=== PATIENT | male | born 1970 ===

== ENCOUNTER 2019-04-21 08:24 | Outpatient (CLI) | payer OTHER ==
[~2019-04-21] VITALS: Ht 175.3 cm; Wt 101.0 kg
[2019-04-21 08:51] VITALS: BP 137/88
[2019-04-21] MEDS ORDERED: ATOR40TA70 PO (09:24)
[2019-04-21] MEDS ORDERED: METF-397 PO (09:24)
[2019-04-21] MEDS ORDERED: HYDR12.56 PO (09:24)
== END 2019-04-21 09:26 | disposition home or self-care (01) ==
LOC: PREOP 08:24
PROVIDERS: ATTEND Surgery
DX: Z01.812 Encounter for preprocedural laboratory examination (principal); R19.09 Other intra-abdominal and pelvic swelling, mass and lump
CPT/HCPCS: 87081

== ENCOUNTER 2019-04-28 06:55 | Day surgery (SDC) | payer OTHER ==
[2019-04-28] VITALS (13 sets, daily range): BP systolic 112–152; BP diastolic 72–104
[~2019-04-28] VITALS: Ht 175.3 cm; Wt 101.0 kg
[~2019-04-28 06:55] MED LIST: ATOR40TA70 PO; HYDR12.56 PO; METF-397 PO
[2019-04-28] MEDS ORDERED: BUP/EPI 0.25% 1:200,000 (MARCAINE) 10 ML VIAL IJ ONE (07:09)
[2019-04-28] MEDS ORDERED: WATER (STERILE) FOR INJECTION 10 ML ONE (07:43)
[2019-04-28] MEDS ORDERED: ceFAZolin INJECTION 1,000 MG ONE (07:43)
[2019-04-28] MEDS ORDERED: proPOfol 200 MG/20 ML (DIPRIVAN) VIAL IV ONE (07:45)
[2019-04-28] MEDS ORDERED: LIDOCAINE PF 2% 5 ML (XYLOCAINE) VIAL ONE (07:45)
[2019-04-28] MEDS ORDERED: SEVOFLURANE (ULTANE) 15 ML INHAL SOLN ONE ×2 (07:45→09:21)
[2019-04-28] MEDS ORDERED: ONDANSETRON 4 MG/2 ML (SDV) Z0FRAN ONE (07:45)
[2019-04-28] MEDS ORDERED: ROCURONIUM 10 MG/ML 5 ML SYRINGE IV ONE (07:45)
[2019-04-28] MEDS ORDERED: LACTATED RINGERS 1,000 ML IV PRN (08:04)
[2019-04-28] MEDS ORDERED: ceFAZolin INJECTION 1,000 MG in WATER (STERILE) FOR INJECTION 10 ML IV ONE (08:15)
[2019-04-28] MEDS ORDERED: fentaNYL INJECTION 100 MCG/2 ML AMP ONE (08:41)
[2019-04-28] MEDS ORDERED: MIDAZOLAM 2 MG/2 ML (VERSED) VIAL ONE (08:41)
--- NOTE | 2019-04-28 08:42 | Progress Note-Pre Operative ---
Pre-Operative Progress Note H&P Reviewed The H&P was reviewed, patient examined and no changes noted. Time Seen by Provider: 08:36 Date H&P Reviewed: Apr 28, 2019 Time H&P Reviewed: 08:37 Pre-Operative Diagnosis: Left flank mass, Back Mass x 2 PEREZ OLSEN DO Apr 28, 2019 08:42
[2019-04-28] MEDS ORDERED: GLYCOPYRROLATE 0.2 MG/ML (ROBINUL) 2 ML VIAL ONE (09:16)
[2019-04-28] MEDS ORDERED: NEOSTIGMINE 3 MG/3 ML VIAL ONE (09:16)
[2019-04-28] MEDS ORDERED: KETOROLAC 30 MG/ML VIAL ONE (09:52)
--- NOTE | 2019-04-28 09:52 | Progress Note-Post Operative ---
Post-Operative Progess Note Surgeon (s)/Payroll Accounting Manager (s) Surgeon PEREZ OLSEN DO Payroll Accounting Manager: Mariajose Moya Pre-Operative Diagnosis Left flank mass, Back Mass x 2 Post-Operative Diagnosis same pending path Procedure & Operative Findings Date of Procedure 04/28/19 Procedure Performed/Findings Exc L flank 3.1cm incision Exc Lower back 3.2 cm incision Exc Upper back 3.3 cm incision Anesthesia Type GET Estimated Blood Loss Estimated blood loss (mL): scant Specimens/Packing Specimens Removed L flank mass, lower back mass, upper back mass PEREZ OLSEN DO Apr 28, 2019 09:52
[2019-04-28] MEDS ORDERED: ACHD5005 PO (09:53)
--- NOTE | 2019-04-28 09:54 | Discharge Inst-Surgical ---
Discharge Inst-Surgical Depart Medication/Instructions New, Converted or Re-Newed RX: RX Given to Pt/Family Patient Instructions Follow up Appt: Make appointment for 1 week. [phone] Instructions: May shower in 24 hours, no tub bath or soaking. Use incentive spirometer at home as directed. No Smoking Skin/Wound Care: May remove bandages in am. You need to leave the Dermabond on incision it will fall off on it's own. Symptoms to Report: Appetite Changes, Extremity Discoloration, Numbness/Tingling, Swelling Increased, Bleeding Excessive, Eyesight Changes, Pain Increased, Urine Color Change, Constipation(Persistent), Fever over 101 degree F, Pain/Pressure in chest, Urinating Difficulty, Cough Up/Vomit Blood, Heart Beat Irreg/Pounding, P ain/Pressure in jaw, Cramps in feet or legs, Lightheadedness, Pain/Pressure in shoulder, Diarrhea(Persistent), Memory Changes Suddenly, Questions/Concerns, Weight gain consecutive days, Dizziness/Fainting, Nausea/Vomiting, Shortness of Breath, Weight gain over 2 pounds If questions or concerns contact your physician Or seek help at emergency department. Activity Activity as Tolerated: Yes Activity Instructions: Avoid Stress to Incision Driving Instructions: You May Drive (but can't be taking narcotics) Diet Discharge Diet: No Restrictions Diet After 24 Hours: Clear Liquid if Nauseous If Any Problems/Questions/Issu: Contact Your Physician, Go to Emergency Room Skin/Wound Care Infection Signs and Symptoms: Increased Redness, Foul Odor of Wound, Increased Drainage, Skin Itchy or Has a Rash, Increased Swelling, Temperature Above 101 F Bathing Instructions: Shower Stitches/Loly/Dermabond Dis: Dermabond Ice Pack: Ice On and Off Site (as needed for pain) PEREZ OLSEN DO Apr 28, 2019 09:54
[2019-04-28] MEDS ORDERED: HYDROmorphone 2 MG/ML VIAL (DILAUDID) IV ONE (10:00)
[2019-04-28] MEDS ORDERED: ONDANSETRON 4 MG/2 ML (SDV) Z0FRAN IVP PRN (10:00)
[2019-04-28] MEDS ORDERED: KETOROLAC 30 MG/ML VIAL IVP ONE (10:15)
[2019-04-28] MEDS ORDERED: HYDROcodone/APAP 5 MG/325 MG (LORTAB) TAB PO ONE (11:00)
--- NOTE | 2019-04-28 11:00 | NUR ---
REPORTS SURGICAL SITE PAIN RATED 2. TAKING PO FLUIDS AND CRACKERS WITHOUT PROBLEM. LORTAB 5/325 MG, ONE TAB, GIVEN PO.
--- NOTE | 2019-04-28 11:30 | NUR ---
RESTING QUIETLY, STATES PAIN BETTER, RATES 1. SKIN AFFIX REMAINS INTACT TO X3 SURGICAL SITES LEFT LATERAL BACK. REQUESTING DISMISSAL.
--- NOTE | 2019-04-28 11:48 | Anesthesia-General Post-Op ---
General Patient Condition Mental Status/LOC: Same as Preop Cardiovascular: Satisfactory Nausea/Vomiting: Absent Respiratory: Satisfactory Pain: Controlled Complications: Absent Post Op Complications Complications None Follow Up Care/Instructions Patient Instructions None needed. Anesthesia/Patient Condition Patient Condition Patient is doing well, no complaints, stable vital signs, no apparent adverse anesthesia problems. No complications reported per nursing. DEBBIE HERNANDEZ CRNA Apr 28, 2019 11:48
--- NOTE | 2019-04-28 18:02 | OPERATIVE REPORT ---
DATE OF SERVICE: 04/28/2019 PREOPERATIVE DIAGNOSES: 1. Left flank mass. 2. Lower back mass. 3. Upper back mass. POSTOPERATIVE DIAGNOSES: 1. Left flank mass. 2. Lower back mass. 3. Upper back mass. 4. Pending pathology. PROCEDURE: Excision of masses left flank 3.2 cm incision, in the lower back 3.1 cm incision, in the upper back 3.3 cm incision. SURGEON: Bhanu Melissa DO AVIATION MANAGER: Mariajose Vizcaino MS3. ANESTHESIA: General endotracheal tube. SPECIMEN: Left flank mass, left lower back mass and upper back mass. BLOOD LOSS: Scant. FLUIDS: Per anesthesia. POSTOPERATIVE CONDITION: Stable. INDICATION FOR PROCEDURE: The patient is a 48-year-old male who has multiple masses on his flank and trunk that 3 of them are larger and causing pain and he would like to get these removed. FINDINGS: The patient had 3 masses removed it looked like lipomas. They were sent to pathology. They were deep into the subcutaneous tissue down to just above the fascia covering the muscle. PROCEDURE NOTE: After informed consent was obtained, the patient was brought to the operating room, placed on the operating table in right lateral decubitus position. He was sterilely prepped and draped in normal fashion. Local lidocaine was used to infiltrate the skin above the left flank mass as well as the lower back mass and the upper back mass. I then made an incision with #15 blade over the left flank mass, carried down through the skin into subcutaneous tissue and then able to carefully pushed on the side and a large lipoma was delivered. Cut off the base with Bovie electrocautery and then passed this off the table. This measured 3.2 cm. I then closed this with 4-0 undyed Monocryl subcuticular stitches. We turned our attention to the lower back mass. Made incision 3.1 cm incision, carried down through the skin into subcutaneous tissue. This one did not deliver, it was easily had to grasp this and then dissect around it to cut this back mass out then palpated around, did not feel any other masses, passed this off the table. Again, this was down to just above the fascia. Hemostasis obtained. Closed with 4-0 undyed Monocryl, 3 interrupted subcuticular stitches then went to the upper back mass. Made another incision, this incision was slightly longer 3.3 cm, carried down through the skin into subcutaneous tissue made with a #15 blade and then created flaps superiorly and inferiorly. Able to grasp this mass and dissected out again looked like a lipoma. Cut this out completely, passed off table and then palpated around, did not feel any other masses. At this point, obtained hemostasis using Bovie electrocautery and closed the incision with 3 interrupted 4-0 undyed Monocryl subcuticular stitches. Area was cleaned and dried. Dermabond placed as well as Band-Aids. The patient then tolerated the procedure well. Sponge and needle count correct at the end of the case. Job ID: [id number] DocumentID: [id number] Dictated Date: 04/28/2019 09:39:05 Certified Driver Examiner Date: 04/28/2019 18:02:09 Dictated By: BHANU MELISSA DO
== END 2019-04-28 12:05 | disposition home or self-care (01) ==
LOC: SDC 06:55
PROVIDERS: ATTEND Surgery
DX: D17.1 Benign lipomatous neoplasm of skin and subcutaneous tissue of trunk (principal); E11.9 Type 2 diabetes mellitus without complications; E78.5 Hyperlipidemia, unspecified; I10 Essential (primary) hypertension; F41.9 Anxiety disorder, unspecified; Z83.3 Family history of diabetes mellitus; Z80.9 Family history of malignant neoplasm, unspecified; E66.9 Obesity, unspecified; Z68.32 Body mass index [BMI] 32.0-32.9, adult; Z79.899 Other long term (current) drug therapy; Z79.84 Long term (current) use of oral hypoglycemic drugs
CPT/HCPCS: 82962; 88304

== ENCOUNTER 2020-02-11 13:23 | Emergency (ER) | payer OTHER ==
[~2020-02-11] VITALS: Ht 165 cm; Wt 99.7 kg
[~2020-02-11 13:23] MED LIST changes: +ACHD5005 PO
--- NOTE | 2020-02-11 13:23 | NUR ---
Airport Maintenance Chief line called to get patient information due to language barrier.
--- NOTE | 2020-02-11 13:23 | NUR ---
Patient states he is currently on an antibiotic for ear infection. He does not know what it's called.
[2020-02-11] MEDS ORDERED: LACTATED RINGERS 1,000 ML IV SCH (13:56)
--- NOTE | 2020-02-11 13:56 | ED General ---
General Chief Complaint: Respiratory Problems Stated Complaint: SOA;VOMITING Source of Information: Patient Exam Limitations: Language Barrier History of Present Illness Date Seen by Provider: Feb 11, 2020 Time Seen by Provider: 13:48 Initial Comments 49-year-old male presents with some mild shortness of breath with some nausea vomiting. Reports he is unable keep anything down. He has loss of taste and smell. Patient has known COVID-19. Patient reports symptoms started about 5 days ago. Has subjective fever. No reports of diarrhea. Allergies and Home Medications Allergies Coded Allergies: No Known Drug Allergies (Unverified , 04/21/19) Home Medications Atorvastatin Calcium 40 Mg Tablet, 40 MG PO DAILY, (Reported) Doxycycline Hyclate 100 Mg Tablet, 100 MG PO BID Prescribed by: LUCRETIA VALADEZ on 02/11/20 1600 Hydrochlorothiazide 12.5 Mg Tablet, 12.5 MG PO DAILY, (Reported) Hydrocodone Bit/Acetaminophen 1 Tab Tab, 1 TAB PO Q6H PRN for PAIN-MODERATE Prescribed by: PEREZ OLSEN on 04/28/19 0953 Metformin HCl 500 Mg Tablet, 500 MG PO BID, (Reported) Methylprednisolone 4 Mg Tab.ds.pk, 4 MG PO UD PER DOSE PACK INSTRUCTIONS Prescribed by: LUCRETIA VALADEZ on 02/11/20 1600 Ondansetron 4 Mg Tab.rapdis, 4 MG PO Q6H PRN for NAUSEA/VOMITING Prescribed by: LUCRETIA VALADEZ on 02/11/20 1517 Patient Home Medication List Home Medication List Reviewed: Yes Review of Systems Review of Systems Constitutional: fever, malaise, weakness Respiratory: cough, short of breath Cardiovascular: No chest pain Gastrointestinal: abdominal pain; No diarrhea; nausea, vomiting Genitourinary: no symptoms reported Musculoskeletal: no symptoms reported Skin: no symptoms reported Psychiatric/Neurological: No Symptoms Reported Past [id number]-Fhvxuk Hx Past Med/Social Hx: Reviewed Nursing Past Med/Soc Hx Patient Social History 2nd Hand Smoke Exposure: No Recent Hopitalizations: No Seasonal Allergies Seasonal Allergies: Yes Past Medical History Surgeries: Yes (KNEE SURGERY) Respiratory: No Cardiac: Yes High Cholesterol, Hypertension Neurological: No Sexually Transmitted Disease: No HIV/AIDS: No Genitourinary: No Gastrointestinal: No Musculoskeletal: No Endocrine: Yes Diabetes, Non-Insulin dep HEENT: Yes (READING GLASSES) Loss of Vision: Denies Hearing Impairment: Denies Cancer: No Psychosocial: Yes (MILD) Anxiety Integumentary: No Blood Disorders: No Adverse Reaction/Blood Tranf: No (N/A) Physical Exam Vital Signs Vital Signs - First Documented 02/11/20 13:23 Temp 39.4 Pulse 99 Resp 21 B/P (MAP) 149/90 (109) Pulse Ox 96 O2 Delivery Room Air Capillary Refill : Height, Weight, BMI Height: 5'9.00" Weight: 222lbs. 9.0oz. 100.378632th; 32.9 BMI Method: General Appearance: No Apparent Distress HEENT: PERRL/EOMI Neck: Non Tender, Supple Respiratory: Chest Non Tender, Lungs Clear Cardiovascular: Tachycardia Gastrointestinal: Non Tender, Soft Extremity: Normal Capillary Refill, Normal Inspection Neurologic/Psychiatric: Alert, Oriented x3, Normal Mood/Affect, tree specialist II-XII Norm as Tested Skin: Normal Color, Warm/Dry Focused Exam Lactate Level 02/11/20 15:06: Lactic Acid Level 1.30 Lactic Acid Level Laboratory Tests Test 02/11/20 15:06 Lactic Acid Level 1.30 MMOL/L (0.50-2.00) Progress/Results/Core Measures Suspected Sepsis SIRS Temperature: Pulse: Respiratory Rate: Laboratory Tests 02/11/20 14:05: White Blood Count 8.9 Blood Pressure / Mean: 02/11/20 15:06: Lactic Acid Level 1.30 Laboratory Tests 02/11/20 14:05: Creatinine 0.99, INR Comment 1.0, Platelet Count 167, Total Bilirubin 0.7 Results/Orders Lab Results Laboratory Tests Test 02/11/20 14:05 02/11/20 14:46 02/11/20 15:06 Range/Units White Blood Count 8.9 4.3-11.0 10^3/uL Red Blood Count 5.16 4.35-5.85 10^6/uL Hemoglobin 15.3 13.3-17.7 G/DL Hematocrit 44 40-54 % Mean Corpuscular Volume 86 80-99 FL Mean Corpuscular Hemoglobin 30 25-34 PG Mean Corpuscular Hemoglobin Concent 35 32-36 G/DL Red Cell Distribution Width 12.8 10.0-14.5 % Platelet Count 167 130-400 10^3/uL Mean Platelet Volume 10.0 7.4-10.4 FL Neutrophils (%) (Auto) 70 42-75 % Lymphocytes (%) (Auto) 23 12-44 % Monocytes (%) (Auto) 7 0-12 % Eosinophils (%) (Auto) 0 0-10 % Basophils (%) (Auto) 0 0-10 % Neutrophils # (Auto) 6.2 1.8-7.8 X 10^3 Lymphocytes # (Auto) 2.0 1.0-4.0 X 10^3 Monocytes # (Auto) 0.6 0.0-1.0 X 10^3 Eosinophils # (Auto) 0.0 0.0-0.3 10^3/uL Basophils # (Auto) 0.0 0.0-0.1 10^3/uL Prothrombin Time 13.5 12.2-14.7 SEC INR Comment 1.0 0.8-1.4 Activated Partial Thromboplast Time 33 24-35 SEC Fibrinogen 605 H 221-496 MG/DL Sodium Level 132 L 135-145 MMOL/L Potassium Level 3.8 3.6-5.0 MMOL/L Chloride Level 99 98-107 MMOL/L Carbon Dioxide Level 26 21-32 MMOL/L Anion Gap 7 5-14 MMOL/L Blood Urea Nitrogen 7 7-18 MG/DL Creatinine 0.99 0.60-1.30 MG/DL Estimat Glomerular Filtration Rate > 60 BUN/Creatinine Ratio 7 Glucose Level 124 H 70-105 MG/DL Calcium Level 7.9 L 8.5-10.1 MG/DL Corrected Calcium 8.3 L 8.5-10.1 MG/DL Total Bilirubin 0.7 0.1-1.0 MG/DL Aspartate Amino Transf (AST/SGOT) 105 H 5-34 U/L Alanine Aminotransferase (ALT/SGPT) 83 H 0-55 U/L Alkaline Phosphatase 101 40-136 U/L Lactate Dehydrogenase 482 H 125-220 U/L Troponin I < 0.028 <0.028 NG/ML C-Reactive Protein High Sensitivity 8.92 H 0.00-0.50 MG/DL Total Protein 7.0 6.4-8.2 GM/DL Albumin 3.5 3.2-4.5 GM/DL Glucometer 100 70-110 MG/DL Lactic Acid Level 1.30 0.50-2.00 MMOL/L My Orders Orders - VALADEZ,LUCRETIA L DO Accucheck Stat ONCE (02/11/20 13:56) Vital Signs: Every 4 Hours (Or (02/11/20 13:56) Monitor-Rhythm Ecg Trace Only (02/11/20 13:56) Cbc With Automated Diff (02/11/20 13:56) Comprehensive Metabolic Panel (02/11/20 13:56) Ferritin (02/11/20 13:56) LDH (02/11/20 13:56) Hs C Reactive Protein (02/11/20 13:56) Troponin I (02/11/20 13:56) Lactic Acid Analyzer (02/11/20 13:56) Protime With Inr (02/11/20 13:56) Partial Thromboplastin Time (02/11/20 13:56) Fibrinogen (02/11/20 13:56) Ekg Tracing (02/11/20 13:56) Chest 1 View, Ap/Pa Only (02/11/20 13:56) Lactated Ringers (Lr 1000 Ml Iv Solution (02/11/20 13:56) Acetaminophen Tablet/Caplet (Tylenol T (02/11/20 14:00) Ondansetron Injection (Zofran Injectio (02/11/20 14:00) Medications Given in ED Current Medications Medications Dose Ordered Sig/Lauren Route Start Time Stop Time Status Last Admin Dose Admin Acetaminophen 650 mg ONCE ONCE PO 02/11/20 14:00 02/11/20 14:01 DC 02/11/20 14:25 650 MG Ondansetron HCl 4 mg ONCE ONCE IV 02/11/20 14:00 02/11/20 14:01 DC 02/11/20 14:25 4 MG Vital Signs/I&O 02/11/20 02/11/20 02/11/20 13:23 14:25 15:30 Temp 39.4 39.5 37.7 Pulse 99 86 Resp 21 20 B/P (MAP) 149/90 (109) 126/74 (91) Pulse Ox 96 96 O2 Delivery Room Air Room Air Capillary Refill : Progress Note : Time: 16:13 Progress Note Patient with known coronavirus. He does have a questionable mass versus pneumonia on chest x-ray. I called and discussed with [facility]. They will arrange for repeat x-ray following 10 days of doxycycline and clearance of the coronavirus. At that time if he still has abnormal chest x-ray they will arrange for an outpatient CT follow-up. Patient is stable and will be discharged home. ECG Initial ECG Impression Date: Feb 11, 2020 Initial ECG Impression Time: 14:42 Initial ECG Rhythm: Normal Sinus Initial ECG Intervals: MT Diagnostic Imaging Diagonstic Imaging: Xray Plain Films/CT/US/NM/MRI: chest Comments bilateral lower lobe pneumonia Departure Impression Primary Impression: Coronavirus infection Additional Impressions: Pneumonia due to human coronavirus Abnormal chest x-ray Disposition: HOME, SELF-CARE Condition: Stable Departure-Patient Inst. Referrals: NO,LOCAL PHYSICIAN (PCP) Primary Care Physician Patient Instructions: Coronavirus Disease 2019 (COVID-19) Overview, Coronavirus Disease 2019 (COVID-19) (DC), Atypical Pneumonia (Mycoplasma and Viral) (DC) Add. Discharge Instructions: You have an abnormal chest x-ray with pneumonia versus another abnormality such as a mass. Please take the antibiotics as prescribed. Follow-up with [facility] in approximately 10 days. They will repeat an x-ray and if warranted and the pneumonia has not resolved, you will need a CT scan on an outpatient basis. Return to the ER as needed. All discharge instructions reviewed with patient and/or family. Voiced understanding. Scripts Methylprednisolone (Methylprednisolone Dose Pack) 4 Mg Tab.ds.pk 4 MG PO UD for 6 Days, #21 PKG PER DOSE PACK INSTRUCTIONS Prov: LUCRETIA VALADEZ DO 02/11/20 Doxycycline Hyclate (Doxycycline Hyclate) 100 Mg Tablet 100 MG PO BID, #20 TAB 0 Refills Prov: LUCRETIA VALADEZ DO 02/11/20 Ondansetron (Ondansetron Odt) 4 Mg Tab.rapdis 4 MG PO Q6H PRN for NAUSEA/VOMITING, #20 TAB 0 Refills Prov: LUCRETIA VALADEZ DO 02/11/20 LUCRETIA VALADEZ DO Feb 11, 2020 13:55
[2020-02-11] MEDS ORDERED: ONDANSETRON 4 MG/2 ML (SDV) Z0FRAN IV ONE (14:00)
[2020-02-11] MEDS ORDERED: ACETAMINOPHEN 325 MG TABLET PO ONE (14:00)
--- OUTSIDE RECORDS SUMMARY | 2020-02-11 14:27 | XMS REPORT | Continuity of Care Document ---
Author Organization Unknown Address Unknown Phone Unavailable Allergies Active Description Code Type Severity Reaction Onset Reported/Identified Relationship to Patient Clinical Status Yes No Known Drug Allergies [id number] Drug Allergy Unknown N/A 04/21/2019 Medications There is no data. Problems Date Dx Coded Attending Type Code Diagnosis Diagnosed By 04/21/2019 PEREZ OLSEN DO B Ot R19.0 9 OTHER INTRA-ABDOMINAL AND PELVIC SWELLIN 04/21/2019 PEREZ OLSEN DO B Ot Z01.8 12 ENCOUNTER FOR PREPROCEDURAL LABORATORY E 04/23/2019 PEREZ OLSEN DO Ot R19.0 9 OTHER INTRA-ABDOMINAL AND PELVIC SWELLIN 04/23/2019 PEREZ OLSEN DO B Ot Z01.8 12 ENCOUNTER FOR PREPROCEDURAL LABORATORY E 04/28/2019 PEREZ OLSEN DO B Ot D17.1 BENIGN LIPOMATOUS NEOPLASM OF SKIN, SUBC 04/28/2019 PEREZ OLSEN DO B Ot E11.9 TYPE 2 DIABETES MELLITUS WITHOUT COMPLIC 04/28/2019 PEREZ OLSEN DO B Ot E66.9 OBESITY, UNSPECIFIED 04/28/2019 SHAISTA OLSEN DOIC B Ot E78.5 HYPERLIPIDEMIA, UNSPECIFIED 04/28/2019 PEREZ OLSEN DO B Ot F41.9 ANXIETY DISORDER, UNSPECIFIED 04/28/2019 SHAISTA OLSEN DOIC B Ot I10 ESSENTIAL (PRIMARY) HYPERTENSION 04/28/2019 PEREZ OLSEN DO B Ot Z68.3 2 BODY MASS INDEX (BMI) 32.0-32.9, ADULT 04/28/2019 PEREZ OLSEN DO B Ot Z79.8 4 LONGTERM (CURRENT) USE OF ORAL HYPOGLYC 04/28/2019 PEREZ OLSEN DO B Ot 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 04/28/2019 PEREZ OLSEN DO B Ot Z80.9 FAMILY HISTORY OF MALIGNANT NEOPLASM, UN 04/28/2019 PEREZ OLSEN DO B Ot Z83.3 FAMILY HISTORY OF DIABETES MELLITUS 05/14/2019 PEREZ OLSEN DO Ot D17.1 BENIGN LIPOMATOUS NEOPLASM OF SKIN, SUBC 05/14/2019 PEREZ OLSEN DO Ot E11.9 TYPE 2 DIABETES MELLITUS WITHOUT COMPLIC 05/14/2019 PEREZ OLSEN DO Ot E66.9 OBESITY, UNSPECIFIED 05/14/2019 PEREZ OLSEN DO Ot E78.5 HYPERLIPIDEMIA, UNSPECIFIED 05/14/2019 PEREZ OLSEN DO Ot F41.9 ANXIETY DISORDER, UNSPECIFIED 05/14/2019 PEREZ OLSEN DO Ot I10 ESSENTIAL (PRIMARY) HYPERTENSION 05/14/2019 PEREZ OLSEN DO Ot Z68.3 2 BODY MASS INDEX (BMI) 32.0-32.9, ADULT 05/14/2019 PEREZ OLSEN DO Ot Z79.8 4 LONGTERM (CURRENT) USE OF ORAL HYPOGLYC 05/14/2019 PEREZ OLSEN DO Ot 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 Results Test Result Range LIPID PANEL - 03/26/19 09:32 CHOLESTEROL, TOTAL 245 mg/dL <200 HDL CHOLESTEROL 36 mg/dL >40 TRIGLYCERIDES 634 mg/dL <150 LDL-CHOLESTEROL mg/dL (calc) NRG CHOL/HDLC RATIO 6.8 (calc) <5.0 NON HDL CHOLESTEROL 209 mg/dL (calc) <13 0 CMP - 03/26/19 09:32 GLUCOSE 223 mg/dL 65-99 UREA NITROGEN (BUN) 12 mg/dL 7-25 CREATININE 0.94 mg/dL 0.60-1.35 eGFR NON-AFR. SAO TOMEAN 97 mL/min/1.73m2 > OR = 60 eGFR 112 mL/min/1.73m2 > OR = 60 BUN/CREATININE RATIO NOT APPLICABLE (calc) 6-22 SODIUM 138 mmol/L 135-146 POTASSIUM 4.0 mmol/L 3.5-5.3 CHLORIDE 103 mmol/L 98-110 CARBON DIOXIDE 26 mmol/L 20-32 CALCIUM 9.2 mg/dL 8.6-10.3 PROTEIN, TOTAL 7.0 g/dL 6.1-8.1 ALBUMIN 3.9 g/dL 3.6-5.1 GLOBULIN 3.1 g/dL (calc) 1.9-3.7 ALBUMIN/GLOBULIN RATIO 1.3 (calc) 1.0-2. 5 BILIRUBIN, TOTAL 0.7 mg/dL 0.2-1.2 ALKALINE PHOSPHATASE 127 U/L 40-115 AST 31 U/L 10-40 ALT 46 U/L 9-46 PSA - 03/26/19 09:32 PSA, TOTAL 0.5 ng/mL < OR = 4.0 TSH - 03/26/19 09:32 TSH 2.88 mIU/L 0.40-4.50 Methicillin resistant Staphylococcus aur eus (MRSA) screening culture - 04/21/19 09:30 Methicillin resistant Staphylococcus aureus (MRSA) scr eening culture NEG NRG Capillary blood glucose measurement by g lucometer (mass/volume) - 04/28/19 07:32 Capillary blood glucose measurement by glucometer (mas s/volume) 144 mg/dL 70-110 Encounters ACCT No. Visit Date/Time Discharge Status Pt. Type Provider Facility Loc./Unit Complaint [id number] 02/07/2020 10:20:00 02/07/2020 23:59: 59 [facility] Outpatient SHANTEL BAILEY [facility] IN [facility] [id number] 03/26/2019 08:40:00 Document Registration [id number] 04/28/2019 06:55:00 019 12:05:00 DIS Outpatient PEREZ OLSEN DO Via [facility] MASSES TO LEFT FLANK AN D BACK [id number] 04/21/2019 08:24:00 019 09:26:00 DIS Outpatient PEREZ OLSEN DO Via [facility] PREOP MASSES TO LEFT FLANK AN D BACK
[2020-02-11 14:32] LABS: BASOPHILS % (AUTO) 0 % (0-10); EOSINOPHILS % (AUTO) 0 % (0-10); HEMATOCRIT 44 % (40-54); HEMOGLOBIN 15.3 G/DL (13.3-17.7); LYMPHOCYTES % (AUTO) 23 % (12-44); MEAN CORPUSCULAR HEMOGLOBIN 30 PG (25-34); MEAN CORPUSCULAR HGB CONC 35 G/DL (32-36); MEAN CORPUSCULAR VOLUME 86 FL (80-99); MONOCYTES # (AUTO) 0.6 X 10^3 (0.0-1.0); MONOCYTES % (AUTO) 7 % (0-12); NEUTROPHILS # (AUTO) 6.2 X 10^3 (1.8-7.8); NEUTROPHILS % (AUTO) 70 % (42-75); PLATELET COUNT 167 10^3/uL (130-400); RED CELL DISTRIBUTION WIDTH 12.8 % (10.0-14.5); WHITE BLOOD COUNT 8.9 10^3/uL (4.3-11.0)
[2020-02-11 14:47] LABS: PROTHROMBIN TIME PATIENT 13.5 SEC (12.2-14.7)
[2020-02-11 14:49] LABS: ALANINE AMINOTRANSFERASE 83 U/L (0-55); ALBUMIN 3.5 GM/DL (3.2-4.5); ALKALINE PHOSPHATASE 101 U/L (40-136); BILIRUBIN,TOTAL 0.7 MG/DL (0.1-1.0); BUN/CREATININE RATIO 7; CALCIUM 7.9 MG/DL (8.5-10.1); CARBON DIOXIDE 26 MMOL/L (21-32); CHLORIDE 99 MMOL/L (98-107); CREATININE SERUM 0.99 MG/DL (0.60-1.30); GFR ESTIMATED > 60; GLUCOSE 124 MG/DL (70-105); POTASSIUM 3.8 MMOL/L (3.6-5.0); SODIUM 132 MMOL/L (135-145)
[2020-02-11] MEDS ORDERED: ONDA4TAB11 PO (15:17)
--- OUTSIDE RECORDS SUMMARY | 2020-02-11 15:19 | XMS REPORT | Continuity of Care Document ---
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 SPANISH 97 mL/min/1.73m2 > OR = 60 eGFR [...] Status Pt. Type Provider Facility Loc./Unit Complaint [id number] 02/07/2020 10:20:00 02/07/2020 23:59: 59 [facility] Outpatient SHANTEL BAILEY [facility] [id number] 03/26/2019 08:40:00 Document Registration [id number] 04/28/2019 06:55:00 019 12:05:00 DIS Outpatient PEREZ OLSEN DO Via [facility] MASSES TO LEFT FLANK AN D BACK [id number] 04/21/2019 08:24:00 019 09:26:00 DIS Outpatient PEREZ OLSEN DO Via [facility] PREOP MASSES TO LEFT FLANK AN D BACK
[2020-02-11 15:30] VITALS: BP 126/74
[2020-02-11] MEDS ORDERED: CEFD300C3 (15:58)
--- NOTE | 2020-02-11 15:59 | Diagnostic Imaging Report ---
INDICATION: Shortness of breath. Vomiting. FINDINGS: Lungs are well-aerated. There are multiple masses within the right lung measuring upwards of 3.5 cm. Left lung appears clear. Heart is not enlarged. No pulmonary edema. No pneumothorax or pleural effusion. IMPRESSION: Multiple round densities in the right lung. These may represent multiple round pneumonias though underlying malignancy is of definite concern. Would recommend CT scan of the chest for further evaluation. Dictated by: Dictated on workstation # [id number]
[2020-02-11] MEDS ORDERED: METH4TAB10 PO (16:00)
[2020-02-11] MEDS ORDERED: DOXY100T2 PO (16:00)
[2020-02-11 16:33] VITALS: BP 119/75
--- NOTE | 2020-02-11 16:34 | NUR ---
Translation line called to give patient discharge instructions. Discharge instructions printed in Gabonese for patient. All questions answered on Translation line. Patient ambulatory from ER without difficulty.
== END 2020-02-11 16:35 | disposition home or self-care (01) ==
LOC: ER 13:24 → EDUNIT# 13:40 → ER 13:41
DX: U07.1 COVID-19 (principal); J12.89 Other viral pneumonia; R91.8 Other nonspecific abnormal finding of lung field; I10 Essential (primary) hypertension; E78.00 Pure hypercholesterolemia, unspecified; E11.9 Type 2 diabetes mellitus without complications; Z79.84 Long term (current) use of oral hypoglycemic drugs
CPT/HCPCS: 36415; 71045; 80053; 82728; 82962; 83605; 83615; 84484; 85025; 85384; 85610; 85730; 86141; 93041

== ENCOUNTER 2020-02-16 14:40 | Inpatient (IN) | payer OTHER ==
[~2020-02-16] VITALS: Ht 164.7 cm; Wt 89.0 kg
[~2020-02-16 14:40] MED LIST changes: +CEFD300C3; +DOXY100T2 PO; +METH4TAB10 PO; +ONDA4TAB11 PO
[2020-02-16] MEDS ORDERED: ACETAMINOPHEN 500 MG TAB (TYLENOL) PO ONE (15:00)
[2020-02-16] MEDS ORDERED: NS IV 1000 ML 1,000 ML IV SCH ×2 (15:00→17:30)
--- NOTE | 2020-02-16 15:19 | Diagnostic Imaging Report ---
INDICATION: Increasing shortness of air. TIME OF EXAM: 2:49 PM. COMPARISON: 02/11/2020. FINDINGS: The heart size is normal. There are worsening airspace infiltrates throughout both lungs, suggestive of worsening pneumonia. There is a rounded component in the right mid to lower lung field which is stable. There is no effusion or pneumothorax. IMPRESSION: Worsening bilateral pulmonary infiltrates, consistent with worsening pneumonia. Dictated by: Dictated on workstation # [id number]
[2020-02-16 15:32] LABS: BASOPHILS # (AUTO) 0.1 10^3/uL (0.0-0.1); BASOPHILS % (AUTO) 0 % (0-10); EOSINOPHILS % (AUTO) 0 % (0-10); HEMATOCRIT 45 % (40-54); HEMOGLOBIN 15.7 G/DL (13.3-17.7); LYMPHOCYTES # (AUTO) 1.4 X 10^3 (1.0-4.0); LYMPHOCYTES % (AUTO) 10 % (12-44); MEAN CORPUSCULAR HEMOGLOBIN 30 PG (25-34); MEAN CORPUSCULAR HGB CONC 35 G/DL (32-36); MEAN CORPUSCULAR VOLUME 86 FL (80-99); MEAN PLATELET VOLUME 9.6 FL (7.4-10.4); MONOCYTES # (AUTO) 0.7 X 10^3 (0.0-1.0); MONOCYTES % (AUTO) 5 % (0-12); NEUTROPHILS # (AUTO) 10.9 X 10^3 (1.8-7.8); NEUTROPHILS % (AUTO) 84 % (42-75); PLATELET COUNT 321 10^3/uL (130-400); RED CELL DISTRIBUTION WIDTH 12.6 % (10.0-14.5)
[2020-02-16 15:55] LABS: ALBUMIN 3.2 GM/DL (3.2-4.5); CHLORIDE 100 MMOL/L (98-107); POTASSIUM 3.9 MMOL/L (3.6-5.0); SODIUM 134 MMOL/L (135-145)
[2020-02-16 15:56] LABS: INR 1.1 (0.8-1.4); PROTHROMBIN TIME PATIENT 14.5 SEC (12.2-14.7)
[2020-02-16 15:58] LABS: GLUCOSE 182 MG/DL (70-105); TOTAL PROTEIN 7.1 GM/DL (6.4-8.2)
[2020-02-16 15:59] LABS: CARBON DIOXIDE 22 MMOL/L (21-32)
[2020-02-16 16:01] LABS: ALKALINE PHOSPHATASE 110 U/L (40-136); CREATININE SERUM 0.81 MG/DL (0.60-1.30); GFR ESTIMATED > 60
[2020-02-16 16:03] LABS: BUN/CREATININE RATIO 14
[2020-02-16 16:04] LABS: ALANINE AMINOTRANSFERASE 57 U/L (0-55)
[2020-02-16 16:11] LABS: ABG BASE EXCESS -1.2 MMOL/L (-2.5-2.5); ABG OXYGEN SATURATION 95 % (94-100); ABG PCO2 31 MMHG (35-45); ABG PH 7.47 (7.37-7.43); ABG PO2 80 MMHG (79-93); ABG TCO2 22.8 MMOL/L (21.0-31.0); ALLENS TEST POSITIVE
[2020-02-16 16:12] LABS: INSPIRED O2 5; PATIENT TEMP 37.8; VENTILATOR NO
--- NOTE | 2020-02-16 16:27 | ED Respiratory ---
General Chief Complaint: Respiratory Problems Stated Complaint: COVID +;SOA Nursing Triage Note: PT PRESENTS TO ED VIA EMS FROM HOME WITH COMPLAINTS OF SOA, COUGH, FEVER, AND WEAKNESS. PT REPORTS HE DID HAVE A POSITIVE COVID SWAB. Source: patient Exam Limitations: no limitations History of Present Illness Date Seen by Provider: Feb 16, 2020 Time Seen by Provider: 15:03 Initial Comments 49-year-old male who was brought to the emergency room from home with complaints of shortness of breath, cough, fever, weakness. He was found to be 85% on room air at home with 103 fever by EMS.. He was diagnosed with COVID on 02/04/2020. He has been on doxycycline for 7 days at the time of diagnosis. He reports that he is continuing to get worse over the past week. Associated Symptoms: fever/chills, shortness of breath Allergies and Home Medications Allergies Coded Allergies: No Known Drug Allergies (Unverified , 04/21/19) Home Medications Atorvastatin Calcium 40 Mg Tablet, 40 MG PO DAILY, (Reported) Doxycycline Hyclate 100 Mg Tablet, 100 MG PO BID Prescribed by: LUCRETIA VALADEZ on 02/11/20 1600 Hydrochlorothiazide 12.5 Mg Tablet, 12.5 MG PO DAILY, (Reported) Hydrocodone Bit/Acetaminophen 1 Tab Tab, 1 TAB PO Q6H PRN for PAIN-MODERATE Prescribed by: PEREZ OLSEN on 04/28/19 0953 Metformin HCl 500 Mg Tablet, 500 MG PO BID, (Reported) Methylprednisolone 4 Mg Tab.ds.pk, 4 MG PO UD PER DOSE PACK INSTRUCTIONS Prescribed by: LUCRETIA VALADEZ on 02/11/20 1600 Ondansetron 4 Mg Tab.rapdis, 4 MG PO Q6H PRN for NAUSEA/VOMITING Prescribed by: LUCRETIA VALADEZ on 02/11/20 1517 Patient Home Medication List Home Medication List Reviewed: Yes Review of Systems Review of Systems Constitutional: see HPI, chills, fever Respiratory: see HPI, cough, short of breath All Other Systems Reviewed Negative Unless Noted: Yes Past Mgspqmy-Oneedt-[place] Hx Past Med/Social Hx: Reviewed Nursing Past Med/Soc Hx Patient Social History Alcohol Use: Denies Use Recreational Drug Use: No Smoking Status: Never a Smoker 2nd Hand Smoke Exposure: No Recent Foreign Travel: No Contact w/Someone Who Travel: No Recent Infectious Disease Expo: No Recent Hopitalizations: No Physical Abuse: No Sexual Abuse: No Mistreated: No Fear: No Seasonal Allergies Seasonal Allergies: Yes Past Medical History Surgeries: Yes (KNEE SURGERY) Respiratory: No Cardiac: Yes High Cholesterol, Hypertension Neurological: No Sexually Transmitted Disease: No HIV/AIDS: No Genitourinary: No Gastrointestinal: No Musculoskeletal: No Endocrine: Yes Diabetes, Non-Insulin dep HEENT: Yes (READING GLASSES) Loss of Vision: Denies Hearing Impairment: Denies Cancer: No Psychosocial: Yes (MILD) Anxiety Integumentary: No Blood Disorders: No Adverse Reaction/Blood Tranf: No (N/A) Family Medical History Reviewed Nursing Family Hx Physical Exam Vital Signs - First Documented 02/16/20 14:40 Temp 37.8 Pulse 88 Resp 16 B/P (MAP) 127/64 (85) Pulse Ox 98 O2 Delivery Non Rebreather O2 Flow Rate 12.00 Capillary Refill : Less Than 3 Seconds Height: 5'9.00" Weight: 222lbs. 9.0oz. [id number]; 36.00 BMI Method: General Appearance: WD/WN, no apparent distress Respiratory: chest non-tender, no respiratory distress, no accessory muscle use, decreased breath sounds Cardiovascular: normal peripheral pulses, regular rate, rhythm, no edema, no gallop, no JVD, no murmur Gastrointestinal: normal bowel sounds, non tender, soft, no organomegaly, no pulsatile mass Extremities: normal capillary refill Neurologic/Psychiatric: alert, normal mood/affect, oriented x 3 Skin: normal color, warm/dry Focused Exam Lactate Level 02/16/20 15:00: Lactic Acid Level 3.28*H Lactic Acid Level Laboratory Tests Test 02/16/20 15:00 Lactic Acid Level 3.28 MMOL/L (0.50-2.00) *H Progress/Results/Core Measures Suspected Sepsis Recent Fever Within 48 Hours: Yes Infection Criteria Present: Documented Infection New/Unexplained Altered Menta: No Sepsis Screen: No Definite Risk SIRS Temperature: Pulse: 88 Respiratory Rate: 16 Laboratory Tests 02/16/20 15:00: White Blood Count 13.0H Blood Pressure 127 /64 Mean: 85 02/16/20 15:00: Lactic Acid Level 3.28*H Laboratory Tests 02/16/20 15:00: Creatinine 0.81, INR Comment 1.1, Platelet Count 321, Total Bilirubin 1.0 Results/Orders Lab Results Laboratory Tests Test 02/16/20 14:56 02/16/20 15:00 Range/Units Blood Gas Puncture Site RIGHT RADIAL Blood Gas Patient Temperature 37.8 Arterial Blood pH 7.47 H 7.37-7.43 Arterial Blood Partial Pressure CO2 31 L 35-45 MMHG Arterial Blood Partial Pressure O2 80 79-93 MMHG Arterial Blood HCO3 22 L 23-27 MMOL/L Arterial Blood Total CO2 22.8 21.0-31.0 MMOL/L Arterial Blood Oxygen Saturation 95 94-100 % Arterial Blood Base Excess -1.2 -2.5-2.5 MMOL/L Cabrera Test POSITIVE Blood Gas Ventilator Setting NO Blood Gas Inspired Oxygen 5 White Blood Count 13.0 H 4.3-11.0 10^3/uL Red Blood Count 5.24 4.35-5.85 10^6/uL Hemoglobin 15.7 13.3-17.7 G/DL Hematocrit 45 40-54 % Mean Corpuscular Volume 86 80-99 FL Mean Corpuscular Hemoglobin 30 25-34 PG Mean Corpuscular Hemoglobin Concent 35 32-36 G/DL Red Cell Distribution Width 12.6 10.0-14.5 % Platelet Count 321 130-400 10^3/uL Mean Platelet Volume 9.6 7.4-10.4 FL Neutrophils (%) (Auto) 84 H 42-75 % Lymphocytes (%) (Auto) 10 L 12-44 % Monocytes (%) (Auto) 5 0-12 % Eosinophils (%) (Auto) 0 0-10 % Basophils (%) (Auto) 0 0-10 % Neutrophils # (Auto) 10.9 H 1.8-7.8 X 10^3 Lymphocytes # (Auto) 1.4 1.0-4.0 X 10^3 Monocytes # (Auto) 0.7 0.0-1.0 X 10^3 Eosinophils # (Auto) 0.0 0.0-0.3 10^3/uL Basophils # (Auto) 0.1 0.0-0.1 10^3/uL Prothrombin Time 14.5 12.2-14.7 SEC INR Comment 1.1 0.8-1.4 Activated Partial Thromboplast Time 26 24-35 SEC Fibrinogen 724 H 221-496 MG/DL Sodium Level 134 L 135-145 MMOL/L Potassium Level 3.9 3.6-5.0 MMOL/L Chloride Level 100 98-107 MMOL/L Carbon Dioxide Level 22 21-32 MMOL/L Anion Gap 12 5-14 MMOL/L Blood Urea Nitrogen 11 7-18 MG/DL Creatinine 0.81 0.60-1.30 MG/DL Estimat Glomerular Filtration Rate > 60 BUN/Creatinine Ratio 14 Glucose Level 182 H 70-105 MG/DL Lactic Acid Level 3.28 *H 0.50-2.00 MMOL/L Calcium Level 8.0 L 8.5-10.1 MG/DL Corrected Calcium 8.6 8.5-10.1 MG/DL Ferritin 930.0 H 32.0-356.0 ng/mL Total Bilirubin 1.0 0.1-1.0 MG/DL Aspartate Amino Transf (AST/SGOT) 34 5-34 U/L Alanine Aminotransferase (ALT/SGPT) 57 H 0-55 U/L Alkaline Phosphatase 110 40-136 U/L Lactate Dehydrogenase 623 H 125-220 U/L Troponin I < 0.028 <0.028 NG/ML C-Reactive Protein High Sensitivity 14.84 H 0.00-0.50 MG/DL Total Protein 7.1 6.4-8.2 GM/DL Albumin 3.2 3.2-4.5 GM/DL My Orders Orders - PASHA FANG Monitor-Rhythm Ecg Trace Only (02/16/20 14:56) Pulse Oximetry Order (02/16/20 14:56) Rt Request For Service (02/16/20 14:56) Sputum Culture (02/16/20 14:56) Vital Signs: Every 4 Hours (Or (02/16/20 14:56) Cbc With Automated Diff (02/16/20 14:56) Comprehensive Metabolic Panel (02/16/20 14:56) Ferritin (02/16/20 14:56) LDH (02/16/20 14:56) Hs C Reactive Protein (02/16/20 14:56) Troponin I (02/16/20 14:56) Lactic Acid Analyzer (02/16/20 14:56) Protime With Inr (02/16/20 14:56) Partial Thromboplastin Time (02/16/20 14:56) Fibrinogen (02/16/20 14:56) Ekg Tracing (02/16/20 14:56) Chest 1 View, Ap/Pa Only (02/16/20 14:56) Arterial Blood Gas (02/16/20 14:56) Acetaminophen Tablet (Tylenol Tablet) (02/16/20 15:00) Ns Iv 1000 Ml (Sodium Chloride 0.9%) (02/16/20 15:00) Blood Culture (02/16/20 14:56) Medications Given in ED Current Medications Medications Dose Ordered Sig/Lauren Route Start Time Stop Time Status Last Admin Dose Admin Acetaminophen 1,000 mg ONCE ONCE PO 02/16/20 15:00 02/16/20 15:03 DC 02/16/20 15:10 1,000 MG Vital Signs/I&O 02/16/20 14:40 Temp 37.8 Pulse 88 Resp 16 B/P (MAP) 127/64 (85) Pulse Ox 98 O2 Delivery Non Rebreather O2 Flow Rate 12.00 Capillary Refill : Less Than 3 Seconds Blood Pressure Mean: 85 Progress Note : Time: 17:45 Progress Note The patient was initially on 15 L on rebreather on arrival to the emergency room. His oxygen saturation was 98% on arrival. He was transferred to a oxymask shortly after arrival and has maintained oxygen saturations greater than 95% on oxymaskI have seen and evaluated the patient. I've informed him of this laboratory and imaging studies. He will receive a total of 3 L of IV fluids. Discussed the case with Dr. Hancock and she agrees to accept the patient to her services. Zosyn was started on in the emergency room. Patient agrees with plan of care. Departure Communication (Admissions) Time/Spoke to Admitting Phy: 17:00 I have discussed the case with Dr. Hancock at this time. She recommends giving the patient Zosyn for antibiotic coverage. Patient agrees with plan of care plans for admission. Impression Primary Impression: Pneumonia Additional Impression: SARS-associated coronavirus infection Disposition: ADMITTED INPATIENT Condition: Stable/Unchanged Admissions Decision to Admit Reason: Admit from ER (General) Decision to Admit/Date: Feb 16, 2020 Time/Decision to Admit Time: 17:00 Departure-Patient Inst. Referrals: NO,LOCAL PHYSICIAN (PCP/Family) Primary Care Physician PASHA FANG Feb 16, 2020 16:27
[2020-02-16] MEDS ORDERED: PIPERACILLIN/TAZOBACTAM (BULK) 4.5 GM in NS (IVPB) 100 ML IV ONE (16:30)
[2020-02-16] MEDS ORDERED: PIPERACILLIN/TAZO 4.5 GM VIAL (ZOSYN) IV ONE (17:00)
[2020-02-16] MEDS ORDERED: REMDESIVIR INJ (NON-FORMULARY) 200 MG in NS (IVPB) 210 ML IV NR (17:30)
[2020-02-16] MEDS ORDERED: LACTATED RINGERS 1,000 ML IV SCH (17:45)
[2020-02-16 18:00] VITALS: BP 134/84
[2020-02-16] MEDS ORDERED: CATHETER FLUSH 10 ML SYR IV PRN (18:00)
--- OUTSIDE RECORDS SUMMARY | 2020-02-16 18:33 | XMS REPORT | Continuity of Care Document ---
Author Organization Unknown Address Unknown Phone Unavailable Allergies Active Description Code Type Severity Reaction Onset Reported/Identified Relationship to Patient Clinical Status Yes No Known Drug Allergies [id number] Drug Allergy Unknown N/A 04/21/2019 Medications There [...] PEREZ OLSEN DO B Ot Z79.8 4 LONG-TERM (CURRENT) USE OF ORAL HYPOGLYC 04/28/2019 PEREZ OLSEN DO B Ot Z79.8 99 OTHER MANAGER TRAINING (CURRENT) DRUG THERAPY 04/28/2019 PEREZ OLSEN DO B Ot Z80.9 FAMILY HISTORY OF MALIGNANT NEOPLASM, UN 04/28/2019 PEREZ OLSEN DO B Ot Z83.3 FAMILY HISTORY OF DIABETES MELLITUS 05/14/2019 SHAISTA OLSEN DOIC B Ot D17.1 BENIGN LIPOMATOUS NEOPLASM OF SKIN, SUBC 05/14/2019 SHAISTA OLSEN DOIC B Ot E11.9 TYPE 2 DIABETES MELLITUS WITHOUT COMPLIC 05/14/2019 SHAISTA OLSEN DOIC B Ot E66.9 OBESITY, UNSPECIFIED 05/14/2019 SHAISTA OLSEN DOIC B Ot E78.5 HYPERLIPIDEMIA, UNSPECIFIED 05/14/2019 SHAISTA OLSEN DOIC B Ot F41.9 ANXIETY DISORDER, UNSPECIFIED 05/14/2019 PRETTY MEDINA, PEREZ B Ot I10 ESSENTIAL (PRIMARY) HYPERTENSION 05/14/2019 SHAISTA OLSEN DOIC B Ot Z68.3 2 BODY MASS INDEX (BMI) 32.0-32.9, ADULT 05/14/2019 SHAISTA OLSEN DOIC B Ot Z79.8 4 LONG-TERM (CURRENT) USE OF ORAL HYPOGLYC 05/14/2019 PRETTY MEDINA PEREZ B Ot Z79.8 99 OTHER MANAGER TRAINING (CURRENT) DRUG THERAPY 05/14/2019 SHAISTA OLSEN DOIC B Ot Z80.9 FAMILY HISTORY OF MALIGNANT NEOPLASM, UN 05/14/2019 SHAISTA OLSEN DOIC B Ot Z83.3 FAMILY HISTORY OF DIABETES MELLITUS 02/13/2020 VALADEZ DO, LUCRETIA L Ot E11.9 TYPE 2 DIABETES MELLITUS WITHOUT COMPLIC 02/13/2020 VALADEZ DO, LUCRETIA L Ot E78.0 0 PURE HYPERCHOLESTEROLEMIA, UNSPECIFIED 02/13/2020 VALADEZ DO, LUCRETIA L Ot I10 ESSENTIAL (PRIMARY) HYPERTENSION 02/13/2020 VALADEZ DO, LUCRETIA L Ot J12.8 9 OTHER VIRAL PNEUMONIA 02/13/2020 VALADEZ DO, LUCRETIA L Ot R06.0 2 SHORTNESS OF BREATH 02/13/2020 VALADEZ DO, LUCRETIA L Ot R91.8 OTHER NONSPECIFIC ABNORMAL FINDING OF IGGY 02/13/2020 VALADEZ DO, LUCRETIA L Ot U07.1 COVID-19 02/13/2020 VALADEZ DO, LUCRETIA L Ot Z79.8 4 MANAGER TRAINING (CURRENT) USE OF ORAL HYPOGLYC Procedures There is no data. Results Test [...] 7-25 CREATININE 0.94 mg/dL 0.60-1.35 eGFR NON-AFR. TRISTANIAN 97 mL/min/1.73m2 > OR = 60 eGFR [...] by glucometer (mas s/volume) 144 mg/dL 70-110 COVID-19 ([facility]) - 02/04/20 10:00 Complete blood count (CBC) with automate d white blood cell (WBC) differential - 02/11/20 14:05 Blood leukocytes automated count (number/volume) 8.9 10*3/uL 4.3-11.0 Blood erythrocytes automated count (number/volume) 5.16 10*6/uL 4.35-5.85 Venous blood hemoglobin measurement (mass/volume) 15.3 g/dL 13.3-17.7 Blood hematocrit (volume fraction) 44 % 40-54 Automated erythrocyte mean corpuscular volume 86 [ foz_us] 80-99 Automated erythrocyte mean corpuscular h emoglobin (mass per erythrocyte) 30 pg 25-34 Automated erythrocyte mean corpuscular h emoglobin concentration measurement (mass/volume) 35 g/dL 32-36 Automated erythrocyte distribution width ratio 12. 8 % 10.0- 14.5 Automated blood platelet count (count/volume) 167 10*3/uL 130-400 Automated blood platelet mean volume measurement 10.0 [foz_us] 7.4-10.4 Automated blood neutrophils/100 leukocytes 70 % 42-75 Automated blood lymphocytes/100 leukocytes 23 % 12-44 Blood monocytes/100 leukocytes 7 % 0-12 Automated blood eosinophils/100 leukocytes 0 % 0-10 Automated blood basophils/100 leukocytes 0 % 0-10 Blood neutrophils automated count (number/volume) 6.2 10*3 1.8-7.8 Blood lymphocytes automated count (number/volume) 2.0 10*3 1.0-4.0 Blood monocytes automated count (number/volume) 0. 6 10*3 0.0-1.0 Automated eosinophil count 0.0 10*3/uL 0 .0-0.3 Automated blood basophil count (count/volume) 0.0 10*3/uL 0.0-0.1 PT panel in platelet poor plasma by coag ulation assay - 02/11/20 14:05 Prothrombin time (PT) in platelet poor plasma by coagu lation assay 13.5 s 12.2-14.7 INR in platelet poor plasma or blood by coagulation as say 1.0 0.8-1.4 Activated partial thromboplastin time (a PTT) in platelet poor plasma bycoagulation assay - 02/11/20 14:05 Activated partial thromboplastin time (a PTT) in platelet poor plasma bycoagulation assay 33 s 24-35 Fibrinogen measurement in platelet poor plasma by coagulation assay (mass/volume) - 02/11/20 14:05 Fibrinogen measurement in platelet poor plasma by coagulation assay (mass/volume) 605 mg/dL 221-496 Comprehensive metabolic panel - 02/11/20 14:05 Serum or plasma sodium measurement (moles/volume) 132 mmol/L 135-145 Serum or plasma potassium measurement (moles/volume) 3.8 mmol/L 3.6-5.0 Serum or plasma chloride measurement (moles/volume) 99 mmol/L 98-107 Carbon dioxide 26 mmol/L 21-32 Serum or plasma anion gap determination (moles/volume) 7 mmol/L 5-14 Serum or plasma urea nitrogen measurement (mass/volume ) 7 mg/dL 7-18 Serum or plasma creatinine measurement (mass/volume) 0.99 mg/dL 0.60-1.30 Serum or plasma urea nitrogen/creatinine mass ratio 7 NRG Serum or plasma creatinine measurement w ith calculation of estimated glomerular filtration rate > NRG Serum or plasma glucose measurement (mass/volume) 124 mg/dL 70-105 Serum or plasma calcium measurement (mass/volume) 7.9 mg/dL 8.5-10.1 Serum or plasma total bilirubin measurement (mass/volu me) 0.7 mg/dL 0.1-1.0 Serum or plasma alkaline phosphatase patrick surement (enzymatic activity/volume) 101 U/L 40-136 Serum or plasma aspartate aminotransfera se measurement (enzymatic activity/volume) 105 U/L 5-34 Serum or plasma alanine aminotransferase measurement (enzymatic activity/volume) 83 U/L 0-55 Serum or plasma protein measurement (mass/volume) 7.0 g/dL 6.4-8.2 Serum or plasma albumin measurement (mass/volume) 3.5 g/dL 3.2-4.5 CALCIUM CORRECTED 8.3 mg/dL 8.5-10.1 Serum ragweed IgE antibody assay - 02/10 14:05 Serum ragweed IgE antibody assay 482 U/L 125-220 Serum or plasma troponin i.cardiac measu rement (mass/volume) - 02/11/20 14:05 Serum or plasma troponin i.cardiac measurement (mass/v olume) < ng/mL <0.028 Serum or plasma C reactive protein measu rement (mass/volume) - 02/11/20 14:05 Serum or plasma C reactive protein measurement (mass/v olume) 8.92 mg/dL 0.00-0.50 Serum or plasma ferritin measurement (ma ss/volume) - 02/11/20 14:05 Serum or plasma ferritin measurement (mass/volume) 1544.3 % 32.0-356.0 Capillary blood glucose measurement by g lucometer (mass/volume) - 02/11/20 14:46 Capillary blood glucose measurement by glucometer (mas s/volume) 100 mg/dL 70-110 Blood lactic acid measurement (moles/vol ume) - 02/11/20 15:06 Blood lactic acid measurement (moles/volume) 1.30 mmol/L 0.50-2.00 Arterial blood gas measurement - 0 14:56 Blood pCO2 31 mm[Hg] 35-45 Blood pO2 80 mm[Hg] 79-93 Arterial blood bicarbonate measurement (moles/volume) 22 mmol/L 23-27 Arterial blood base excess by calculation -1.2 mmo l/L -2.5-2.5 Arterial blood oxygen saturation measurement 95 % 94-100 * Inhaled oxygen flow rate 5 NRG Arterial blood pH measurement with patient temperature correction 7.47 7.37-7.43 Arterial blood carbon dioxide, total measurement (mole s/volume) 22.8 mmol/L 21.0-31.0 Body site RIGHT RADIAL NRG Assessment of wrist artery patency prior to arterial p uncture POSITIVE NRG Setting of ventilation mode NO NR G Measurement of body temperature 37.8 NRG Complete blood count (CBC) with automate d white blood cell (WBC) differential - 02/16/20 15:00 Blood leukocytes automated count (number/volume) 13.0 10*3/uL 4.3-11.0 Blood erythrocytes automated count (number/volume) 5.24 10*6/uL 4.35-5.85 Venous blood hemoglobin measurement (mass/volume) 15.7 g/dL 13.3-17.7 Blood hematocrit (volume fraction) 45 % 40-54 Automated erythrocyte mean corpuscular volume 86 [ foz_us] 80-99 Automated erythrocyte mean corpuscular h emoglobin (mass per erythrocyte) 30 pg 25-34 Automated erythrocyte mean corpuscular h emoglobin concentration measurement (mass/volume) 35 g/dL 32-36 Automated erythrocyte distribution width ratio 12. 6 % 10.0- 14.5 Automated blood platelet count (count/volume) 321 10*3/uL 130-400 Automated blood platelet mean volume measurement 9.6 [foz_us] 7.4-10.4 Automated blood neutrophils/100 leukocytes 84 % 42-75 Automated blood lymphocytes/100 leukocytes 10 % 12-44 Blood monocytes/100 leukocytes 5 % 0-12 Automated blood eosinophils/100 leukocytes 0 % 0-10 Automated blood basophils/100 leukocytes 0 % 0-10 Blood neutrophils automated count (number/volume) 10.9 10*3 1.8-7.8 Blood lymphocytes automated count (number/volume) 1.4 10*3 1.0-4.0 Blood monocytes automated count (number/volume) 0. 7 10*3 0.0-1.0 Automated eosinophil count 0.0 10*3/uL 0 .0-0.3 Automated blood basophil count (count/volume) 0.1 10*3/uL 0.0-0.1 Blood lactic acid measurement (moles/vol ume) - 02/16/20 15:00 Blood lactic acid measurement (moles/volume) 3.28 mmol/L 0.50-2.00 Comprehensive metabolic panel - 02/16/20 15:00 Serum or plasma sodium measurement (moles/volume) 134 mmol/L 135-145 Serum or plasma potassium measurement (moles/volume) 3.9 mmol/L 3.6-5.0 Serum or plasma chloride measurement (moles/volume) 100 mmol/L 98-107 Carbon dioxide 22 mmol/L 21-32 Serum or plasma anion gap determination (moles/volume) 12 mmol/L 5-14 Serum or plasma urea nitrogen measurement (mass/volume ) 11 mg/dL 7-18 Serum or plasma creatinine measurement (mass/volume) 0.81 mg/dL 0.60-1.30 Serum or plasma urea nitrogen/creatinine mass ratio 14 NRG Serum or plasma creatinine measurement w ith calculation of estimated glomerular filtration rate > NRG Serum or plasma glucose measurement (mass/volume) 182 mg/dL 70-105 Serum or plasma calcium measurement (mass/volume) 8.0 mg/dL 8.5-10.1 Serum or plasma total bilirubin measurement (mass/volu me) 1.0 mg/dL 0.1-1.0 Serum or plasma alkaline phosphatase patrick surement (enzymatic activity/volume) 110 U/L 40-136 Serum or plasma aspartate aminotransfera se measurement (enzymatic activity/volume) 34 U/L 5-34 Serum or plasma alanine aminotransferase measurement (enzymatic activity/volume) 57 U/L 0-55 Serum or plasma protein measurement (mass/volume) 7.1 g/dL 6.4-8.2 Serum or plasma albumin measurement (mass/volume) 3.2 g/dL 3.2-4.5 CALCIUM CORRECTED 8.6 mg/dL 8.5-10.1 PT panel in platelet poor plasma by coag ulation assay - 02/16/20 15:00 Prothrombin time (PT) in platelet poor plasma by coagu lation assay 14.5 s 12.2-14.7 INR in platelet poor plasma or blood by coagulation as say 1.1 0.8-1.4 Activated partial thromboplastin time (a PTT) in platelet poor plasma bycoagulation assay - 02/16/20 15:00 Activated partial thromboplastin time (a PTT) in platelet poor plasma bycoagulation assay 26 s 24-35 Fibrinogen measurement in platelet poor plasma by coagulation assay (mass/volume) - 02/16/20 15:00 Fibrinogen measurement in platelet poor plasma by coagulation assay (mass/volume) 724 mg/dL 221-496 Serum ragweed IgE antibody assay - 02/15 15:00 Serum ragweed IgE antibody assay 623 U/L 125-220 Serum or plasma troponin i.cardiac measu rement (mass/volume) - 02/16/20 15:00 Serum or plasma troponin i.cardiac measurement (mass/v olume) < ng/mL <0.028 Serum or plasma C reactive protein measu rement (mass/volume) - 02/16/20 15:00 Serum or plasma C reactive protein measurement (mass/v olume) 14.84 mg/dL 0.00-0.50 Serum or plasma lactate measurement (mol es/volume) - 02/16/20 17:24 Serum or plasma lactate measurement (moles/volume) 2.35 mmol/L 0.50-2.00 Encounters ACCT No. Visit Date/Time Discharge Status Pt. Type Provider Facility Loc./Unit Complaint [id number] 02/07/2020 10:20:00 02/07/2020 23:59: 59 [facility] Outpatient SHANTEL BAILEY [facility] [id number] 02/04/2020 09:40:00 Document Registration [id number] 03/26/2019 08:40:00 Document Registration [id number] 02/11/2020 13:24:00 020 16:35:00 DIS Outpatient LUCRETIA VALADEZ DO [facility] ER SOA;VOMITING [id number] 04/28/2019 06:55:00 019 12:05:00 DIS Outpatient PEREZ OLSEN DO [facility] SDC MASSES TO LEFT FLANK AN D BACK [id number] 04/21/2019 08:24:00 019 09:26:00 DIS Outpatient PEREZ OLSEN DO [facility] PREOP MASSES TO LEFT FLANK AN D BACK [id number] 02/16/2020 15:39:00 Document Registration
[2020-02-16 18:44] LABS: BASOPHILS % (AUTO) 0 % (0-10); EOSINOPHILS % (AUTO) 0 % (0-10); HEMATOCRIT 39 % (40-54); HEMOGLOBIN 13.4 G/DL (13.3-17.7); LYMPHOCYTES # (AUTO) 1.3 X 10^3 (1.0-4.0); LYMPHOCYTES % (AUTO) 12 % (12-44); MEAN CORPUSCULAR HEMOGLOBIN 30 PG (25-34); MEAN CORPUSCULAR HGB CONC 34 G/DL (32-36); MEAN CORPUSCULAR VOLUME 86 FL (80-99); MEAN PLATELET VOLUME 9.3 FL (7.4-10.4); MONOCYTES # (AUTO) 0.7 X 10^3 (0.0-1.0); MONOCYTES % (AUTO) 6 % (0-12); NEUTROPHILS # (AUTO) 9.2 X 10^3 (1.8-7.8); NEUTROPHILS % (AUTO) 82 % (42-75); PLATELET COUNT 240 10^3/uL (130-400); RED CELL DISTRIBUTION WIDTH 12.6 % (10.0-14.5); WHITE BLOOD COUNT 11.2 10^3/uL (4.3-11.0)
[2020-02-16 19:00] VITALS: BP 134/81
--- NOTE | 2020-02-16 19:01 | NUR ---
this nurse et RN Reshma Kim discussed with patient risks et side effects of medication Remdesivir. Patient voiced understanding, et gave consent to receive medication.
[2020-02-16 19:09] LABS: BAND NEUTROPHILS 0 %; BASOPHILS % (MANUAL) 0 %; EOSINOPHILS % (MANUAL) 0 %; LYMPHOCYTES % (MANUAL) 12 %; METAMYELOCYTES % 2 %; MONOCYTES % (MANUAL) 4 %; NEUTROPHILS % (MANUAL) 82 %; NUCLEATED RED BLOOD CELLS 1; POLYCHROMASIA SLIGHT
[2020-02-16 19:10] LABS: ANISOCYTOSIS SLIGHT
[2020-02-16 19:13] LABS: ALBUMIN 2.6 GM/DL (3.2-4.5); CALCIUM 7.3 MG/DL (8.5-10.1); CHLORIDE 106 MMOL/L (98-107); GLUCOSE 150 MG/DL (70-105); SODIUM 135 MMOL/L (135-145)
[2020-02-16 19:14] LABS: CARBON DIOXIDE 22 MMOL/L (21-32); TOTAL PROTEIN 5.7 GM/DL (6.4-8.2)
[2020-02-16 19:20] LABS: ALANINE AMINOTRANSFERASE 45 U/L (0-55); ALKALINE PHOSPHATASE 85 U/L (40-136); BILIRUBIN,TOTAL 1.2 MG/DL (0.1-1.0); BUN/CREATININE RATIO 12; CREATININE SERUM 0.73 MG/DL (0.60-1.30); GFR ESTIMATED > 60
[2020-02-16 20:00] VITALS: BP 135/80
[2020-02-16 21:00] VITALS: BP 134/83
[2020-02-16] MEDS: NS IV 1000 ML 1,000 ML IV SCH (21:01)
--- OUTSIDE RECORDS SUMMARY | 2020-02-16 21:30 | XMS REPORT | Continuity of Care Document ---
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 [place] 97 mL/min/1.73m2 > OR = 60 eGFR [...] plasma lactate measurement (moles/volume) 2.35 mmol/L 0.50-2.00 Blood CBC with ordered manual differenti al panel - 02/16/20 18:17 Blood leukocytes automated count (number/volume) 11.2 10*3/uL 4.3-11.0 Blood erythrocytes automated count (number/volume) 4.51 10*6/uL 4.35-5.85 Venous blood hemoglobin measurement (mass/volume) 13.4 g/dL 13.3-17.7 Blood hematocrit (volume fraction) 39 % 40-54 Automated erythrocyte mean corpuscular volume 86 [ foz_us] 80-99 Automated erythrocyte mean corpuscular h emoglobin (mass per erythrocyte) 30 pg 25-34 Automated erythrocyte mean corpuscular h emoglobin concentration measurement (mass/volume) 34 g/dL 32-36 Automated erythrocyte distribution width ratio 12. 6 % 10.0- 14.5 Automated blood platelet count (count/volume) 240 10*3/uL 130-400 Automated blood platelet mean volume measurement 9.3 [foz_us] 7.4-10.4 Automated blood neutrophils/100 leukocytes 82 % 42-75 Automated blood lymphocytes/100 leukocytes 12 % 12-44 Blood monocytes/100 leukocytes 4 % NRG Automated blood eosinophils/100 leukocytes 0 % 0-10 Automated blood basophils/100 leukocytes 0 % 0-10 Blood neutrophils automated count (number/volume) 9.2 10*3 1.8-7.8 Blood lymphocytes automated count (number/volume) 1.3 10*3 1.0-4.0 Blood monocytes automated count (number/volume) 0. 7 10*3 0.0-1.0 Automated eosinophil count 0.0 10*3/uL 0 .0-0.3 Automated blood basophil count (count/volume) 0.0 10*3/uL 0.0-0.1 Manual blood segmented neutrophils/100 leukocytes 82 % NRG Blood band neutrophils/100 leukocytes 0 % NRG Manual blood lymphocytes/100 leukocytes 12 % NRG Manual eosinophils/100 leukocytes in nose 0 % NRG Manual blood basophils/100 leukocytes 0 % NRG Blood polychromasia detection by light microscopy SLIGHT NRG Blood anisocytosis detection by light microscopy S LIGHT NRG Blood macrocytes detection by light microscopy SLI GHT NRG Manual blood metamyelocytes/100 leukocytes 2 % NRG Manual blood nucleated erythrocytes/100 leukocytes ratio 1 NRG Fibrin D-dimer FEU measurement in platel et poor plasma (mass/volume) - 02/16/20 18:17 Fibrin D-dimer FEU measurement in platelet poor plasma (mass/volume) 15.25 ug/mL 0.00-0.49 Comprehensive metabolic panel - 02/16/20 18:17 Serum or plasma sodium measurement (moles/volume) 135 mmol/L 135-145 Serum or plasma potassium measurement (moles/volume) 4.0 mmol/L 3.6-5.0 Serum or plasma chloride measurement (moles/volume) 106 mmol/L 98-107 Carbon dioxide 22 mmol/L 21-32 Serum or plasma anion gap determination (moles/volume) 7 mmol/L 5-14 Serum or plasma urea nitrogen measurement (mass/volume ) 9 mg/dL 7-18 Serum or plasma creatinine measurement (mass/volume) 0.73 mg/dL 0.60-1.30 Serum or plasma urea nitrogen/creatinine mass ratio 12 NRG Serum or plasma creatinine measurement w ith calculation of estimated glomerular filtration rate > NRG Serum or plasma glucose measurement (mass/volume) 150 mg/dL 70-105 Serum or plasma calcium measurement (mass/volume) 7.3 mg/dL 8.5-10.1 Serum or plasma total bilirubin measurement (mass/volu me) 1.2 mg/dL 0.1-1.0 Serum or plasma alkaline phosphatase patrick surement (enzymatic activity/volume) 85 U/L 40-136 Serum or plasma aspartate aminotransfera se measurement (enzymatic activity/volume) 28 U/L 5-34 Serum or plasma alanine aminotransferase measurement (enzymatic activity/volume) 45 U/L 0-55 Serum or plasma protein measurement (mass/volume) 5.7 g/dL 6.4-8.2 Serum or plasma albumin measurement (mass/volume) 2.6 g/dL 3.2-4.5 CALCIUM CORRECTED 8.4 mg/dL 8.5-10.1 Capillary blood glucose measurement by g lucometer (mass/volume) - 02/16/20 20:52 Capillary blood glucose measurement by glucometer (mas s/volume) 177 mg/dL 70-110 Encounters ACCT No. Visit Date/Time Discharge Status Pt. Type Provider Facility Loc./Unit Complaint [id number] 02/07/2020 10:20:00 02/07/2020 23:59: 59 CLS Outpatient [facility] [id number] 02/04/2020 09:40:00 Document Registration [id number] 03/26/2019 08:40:00 Document Registration [id number] 02/11/2020 13:24:00 020 16:35:00 DIS Outpatient VALADEZ DO, LUCRETIA L [facility] ER SOA;VOMITING [id number] 04/28/2019 06:55:00 019 12:05:00 DIS Outpatient PEREZ OLSEN DO [facility] SDC MASSES TO LEFT FLANK AN D BACK [id number] 04/21/2019 08:24:00 019 09:26:00 DIS Outpatient PEREZ OLSEN DO [facility] PREOP MASSES TO LEFT FLANK AN D BACK [id number] 02/16/2020 14:41:[address] Emergency PASHA FANG [facility] ER COVID +;SOA
[2020-02-16 21:39] VITALS: BP 127/64
[2020-02-16] MEDS ORDERED: HYDROCORTISONE 100 MG/2 ML (Solu-CORTEF) VIAL IV SCH (22:00)
[2020-02-16 23:00] VITALS: BP 140/92
[2020-02-16] MEDS: PIPERACILLIN/TAZO 4.5 GM/NS 100 ML IV SCH ×2 (23:08)
[2020-02-17] VITALS (23 sets, daily range): BP systolic 104–163; BP diastolic 60–107
[2020-02-17 03:51] LABS: CHLORIDE 106 MMOL/L (98-107); POTASSIUM 4.2 MMOL/L (3.6-5.0); SODIUM 135 MMOL/L (135-145)
[2020-02-17 03:52] LABS: CALCIUM 7.8 MG/DL (8.5-10.1)
[2020-02-17 03:53] LABS: GLUCOSE 258 MG/DL (70-105)
[2020-02-17 03:55] LABS: CARBON DIOXIDE 19 MMOL/L (21-32)
[2020-02-17 03:57] LABS: CREATININE SERUM 0.76 MG/DL (0.60-1.30); GFR ESTIMATED > 60; PHOSPHORUS 3.4 MG/DL (2.3-4.7)
[2020-02-17 03:58] LABS: BUN/CREATININE RATIO 14
[2020-02-17 04:00] LABS: BASOPHILS % (AUTO) 0 % (0-10); EOSINOPHILS % (AUTO) 0 % (0-10); HEMATOCRIT 40 % (40-54); HEMOGLOBIN 13.8 G/DL (13.3-17.7); LYMPHOCYTES % (AUTO) 10 % (12-44); MAGNESIUM 2.1 MG/DL (1.6-2.4); MEAN CORPUSCULAR HEMOGLOBIN 30 PG (25-34); MEAN CORPUSCULAR HGB CONC 34 G/DL (32-36); MEAN CORPUSCULAR VOLUME 88 FL (80-99); MEAN PLATELET VOLUME 9.5 FL (7.4-10.4); MONOCYTES # (AUTO) 0.6 X 10^3 (0.0-1.0); MONOCYTES % (AUTO) 6 % (0-12); NEUTROPHILS # (AUTO) 8.2 X 10^3 (1.8-7.8); NEUTROPHILS % (AUTO) 83 % (42-75); PLATELET COUNT 227 10^3/uL (130-400); RED CELL DISTRIBUTION WIDTH 12.9 % (10.0-14.5); WHITE BLOOD COUNT 9.8 10^3/uL (4.3-11.0)
[2020-02-17 04:21] LABS: BAND NEUTROPHILS 0 %; EOSINOPHILS % (MANUAL) 2 %; LYMPHOCYTES % (MANUAL) 12 %; MONOCYTES % (MANUAL) 7 %; NEUTROPHILS % (MANUAL) 79 %
[2020-02-17] MEDS: POTASSIUM CL 10MEQ/50ML IVPB 50 ML IV SCH (05:30)
[2020-02-17] MEDS: KCL 20 MEQ TAB (K-DUR) PO SCH (05:31)
[2020-02-17] MEDS: MAGNESIUM 1 GM/100 ML IVPB 100 ML IV SCH (05:31)
--- NOTE | 2020-02-17 06:20 | Pulmonary Consultation ---
History of Present Illness History of Present Illness Date Seen by Provider: Feb 17, 2020 Time Seen by Provider: 06:15 Date of Admission History of Present Illness 49yo presented to ED secondary to worsening shortness of breath, cough, fever, weakness. He was found to be 85% on room air at home with 103 fever by EMS.. He was diagnosed with COVID on 02/04/2020. He has been on doxycycline for 7 days at the time of diagnosis. He reports that he is continuing to get worse over the past week. Pt was admitted to ICU for close observation. Allergies and Home Medications Allergies Coded Allergies: No Known Drug Allergies (Unverified , 04/21/19) Home Medications Atorvastatin Calcium 40 Mg Tablet, 40 MG PO DAILY, (Reported) Doxycycline Hyclate 100 Mg Tablet, 100 MG PO BID Prescribed by: LUCRETIA VALADEZ on 02/11/20 1600 Hydrochlorothiazide 12.5 Mg Tablet, 12.5 MG PO DAILY, (Reported) Hydrocodone Bit/Acetaminophen 1 Tab Tab, 1 TAB PO Q6H PRN for PAIN-MODERATE Prescribed by: PEREZ OLSEN on 04/28/19 0953 Metformin HCl 500 Mg Tablet, 500 MG PO BID, (Reported) Methylprednisolone 4 Mg Tab.ds.pk, 4 MG PO UD PER DOSE PACK INSTRUCTIONS Prescribed by: LUCRETIA VALADEZ on 02/11/20 1600 Ondansetron 4 Mg Tab.rapdis, 4 MG PO Q6H PRN for NAUSEA/VOMITING Prescribed by: LUCRETIA VALADEZ on 02/11/20 1517 Past Sjodofz-Ruexbd-Bwqxxc Hx Past Med/Social Hx: Reviewed Nursing Past Med/Soc Hx Patient Social History Alcohol Use: Denies Use Recreational Drug Use: No Smoking Status: Never a Smoker 2nd Hand Smoke Exposure: No Recent Foreign Travel: No Contact w/Someone Who Travel: No Recent Infectious Disease Expo: No Recent Hopitalizations: No Physical Abuse: No Sexual Abuse: No Mistreated: No Fear: No Seasonal Allergies Seasonal Allergies: Yes Past Medical History Surgeries: Yes (KNEE SURGERY) Respiratory: No Cardiac: Yes High Cholesterol, Hypertension Neurological: No Sexually Transmitted Disease: No HIV/AIDS: No Genitourinary: No Gastrointestinal: No Musculoskeletal: No Endocrine: Yes Diabetes, Non-Insulin dep HEENT: Yes (READING GLASSES) Loss of Vision: Denies Hearing Impairment: Denies Cancer: No Psychosocial: Yes (MILD) Anxiety Integumentary: No Blood Disorders: No Adverse Reaction/Blood Tranf: No (N/A) Family Medical History Reviewed Nursing Family Hx Review of Systems Time Seen by Provider: 06:24 Constitutional: Fever, Chills, Sweats, Weakness, Malaise, Other Eyes: No: Pain, Vision change, Conjunctivae inflammation, Eyelid inflammation, Other, Redness ENT: Nose congestion; No: Ear pain, Ear discharge, Nose pain, Nose discharge, Mouth pain, Mouth swelling, Throat pain, Throat swelling, Other Respiratory: Cough, Dry, Shortness of breath, SOB with excertion, Wheezing Cardiovascular: Palpitations, Paroxysmal Noc. Dyspnea Sepsis Event Evaluation Height, Weight, BMI Height: 5'9.00" Weight: 222lbs. 9.0oz. 100.558799pu; 36.75 BMI Method: Exam Exam Vital Signs Date Time Temp Pulse Resp B/P (MAP) Pulse Ox O2 Delivery O2 Flow Rate FiO2 02/17/20 05:00 61 32 94 Nasal Cannula 4.00 02/17/20 04:00 95 Nasal Cannula 4.00 02/17/20 04:00 60 28 138/93 (108) 94 Nasal Cannula 4.00 02/17/20 03:00 61 22 130/82 (98) 94 Nasal Cannula 4.00 02/17/20 02:00 62 30 145/85 (105) 94 Nasal Cannula 4.00 02/17/20 01:00 58 23 148/82 (104) 95 Nasal Cannula 4.00 02/17/20 01:00 60 02/17/20 00:00 95 Nasal Cannula 4.00 02/17/20 00:00 68 29 141/86 (104) 94 Nasal Cannula 4.00 02/16/20 23:30 Nasal Cannula 4.00 02/16/20 23:00 65 24 140/92 (108) 95 OxyMask 6.00 02/16/20 22:00 59 25 97 OxyMask 6.00 02/16/20 21:39 37.8 88 96 02/16/20 21:00 60 28 134/83 (100) 97 OxyMask 6.00 02/16/20 20:00 60 24 135/80 (98) 97 OxyMask 6.00 02/16/20 20:00 95 Nasal Cannula 4.00 7/1/20 20:00 36.1 02/16/20 19:42 OxyMask 6.00 02/16/20 19:00 70 02/16/20 19:00 74 30 134/81 (98) 93 OxyMask 6.00 02/16/20 18:00 36.3 76 42 134/84 (101) 96 OxyMask 6.00 02/16/20 17:40 73 20 127/94 96 OxyMask 6.00 02/16/20 14:40 37.8 88 16 127/64 (85) 98 Non Rebreather 12.00 I & O 02/17/20 07:00 Intake Total 2810 ml Output Total 1700 ml Balance 1110 ml Height & Weight Height: 5'9.00" Weight: 222lbs. 9.0oz. 100.209807ll; 36.75 BMI Method: General Appearance: Anxious, Mild Distress HEENT: PERRL/EOMI, Pharynx Normal Neck: Full Range of Motion, Non Tender, Supple Respiratory: Chest Non Tender, No Accessory Muscle Use, No Respiratory Distress, Decreased Breath Sounds Cardiovascular: Regular Rate, Rhythm, No Edema Capillary Refill: Less Than 3 Seconds Gastrointestinal: normal bowel sounds, non tender, soft, no organomegaly, no pulsatile mass Extremity: Normal Capillary Refill, Normal Inspection, No Pedal Edema Neurologic/Psychiatric: Alert, Oriented x3 Skin: Normal Color, Warm/Dry Lymphatic: No Adenopathy Results Lab Laboratory Tests 02/16/20 15:00 02/16/20 18:17 02/17/20 02:11 Assessment/Plan Assessment/Plan Acute oxygenation failure -monitor close in ICU -Currently requiring 6 liters NC -Awake proning COVID + -Remdesivir -Start Decadron -D/C solucortef Pneumonia with severe sepsis upon admission -IVF pt had 3 liters while in the ED -Zosyn Metabolic lactic acidosis -IVF 75 NS currently NIDDM -SSI accu checks Never smoker HX of HTN, hyperlipidemia GI/DVT ppx -Start lovenox and protonix AYDEE VACA DO Feb 17, 2020 06:20
[2020-02-17] MEDS ORDERED: ENOXAPARIN 40 MG/0.4 ML (LOVENOX) SYR SC SCH (06:30)
[2020-02-17] MEDS: inSUlin ASPART (NovoLOG) 1 UNIT/0.01 ML (CHARGE PER UNIT) SQ SCH ×4 (07:10→21:26)
[2020-02-17] MEDS: PIPERACILLIN/TAZO 4.5 GM/NS 100 ML IV SCH ×6 (07:10→23:32)
[2020-02-17] MEDS: NS IV 1000 ML 1,000 ML IV SCH ×2 (07:20→20:43)
[2020-02-17] MEDS: RT-ALBUTEROL INHALER HFA (VENTOLIN HFA) 8 GM IH SCH (07:24)
[2020-02-17] MEDS: PANTOPRAZOLE 40 MG (PROTONIX) VIAL IV SCH (08:20)
[2020-02-17] MEDS: DEXAMETHASONE 4 MG/ML SDV (DECADRON) IV SCH (08:20)
[2020-02-17] MEDS ORDERED: ACETAMINOPHEN 500 MG TAB (TYLENOL) ONE (09:45)
[2020-02-17] MEDS ORDERED: ACETAMINOPHEN 500 MG TAB (TYLENOL) PO ONE (09:50)
[2020-02-17] MEDS ORDERED: ACETAMINOPHEN 325 MG TABLET PO PRN (10:00)
--- NOTE | 2020-02-17 10:19 | History & Physical-Hospitalist ---
History of Present Illness HPI/Chief Complaint Pt is a 49yoCM with a PMH of HTN, HLD, NIDDMII who presented to the ER due to SOB. When I went to see him he had taken his oxygen off and was satting 80 percent and in respiratory distress so history is limited. Reportedly he was diagnosed with coronavirus on 02/04/2020 and was seen in the ER here on 02/10 due to SOB. He was diagnosed with secondary pneumonia at that time and treated with doxycycline. Despite this he continued to worsen and presented yesterday with worsening shortness of breath and was admitted to the ICU due to profound hypoxia. Source: patient Date Seen 02/17/20 Time Seen by a Provider: 10:08 Attending Physician Rikik Hancock MD PCP No,Local Physician Referring Physician Date of Admission Feb 16, 2020 at 16:15 Home Medications & Allergies Home Medications Reviewed patient Home Medication Reconciliation performed by pharmacy medication reconciliations contract technician and/or nursing. Patients Allergies have been reviewed. Allergies Allergies Coded Allergies No Known Drug Allergies (Unverified04/21/19) Past Xqussjq-Wkkdij-Aruvuy Hx Past Med/Social Hx: Reviewed Nursing Past Med/Soc Hx Patient Social History Alcohol Use: Denies Use Recreational Drug Use: No Smoking Status: Never a Smoker 2nd Hand Smoke Exposure: No Recent Foreign Travel: No Contact w/other who traveled: No Recent Hopitalizations: No Recent Infectious Disease Expo: No Seasonal Allergies Seasonal Allergies: Yes Past Medical History Cardiac: High Cholesterol, Hypertension Sexually Transmitted Disease: No HIV/AIDS: No Endocrine: Diabetes, Non-Insulin dep Loss of Vision: Denies Hearing Impairment: Denies Psychosocial: Anxiety History of Blood Disorders: No Adverse Reaction to Blood Coates: No (N/A) Family History Reviewed Nursing Family Hx Review of Systems ROS-Unable to Obtain: Limited by respiratory distress Constitutional: see HPI, fever Respiratory: cough, short of breath Physical Exam Physical Exam Vital Signs Vital Signs - First Documented 02/16/20 02/17/20 14:40 08:50 Temp 37.8 Pulse 88 Resp 16 B/P (MAP) 127/64 (85) Pulse Ox 98 O2 Delivery Non Rebreather O2 Flow Rate 12.00 FiO2 55 Capillary Refill : Less Than 3 Seconds Height, Weight, BMI Height: 5'9.00" Weight: 222lbs. 9.0oz. 100.316555sb; 36.75 BMI Method: General Appearance: Moderate Distress, Obese Respiratory: No Accessory Muscle Use; No Crackles; Decreased Breath Sounds, Ot her (placed on 15 liters NRB, appears SOB) Cardiovascular: Regular Rate, Rhythm, No Murmur Gastrointestinal: Normal Bowel Sounds, Non Tender, Soft Extremity: No Calf Tenderness, No Pedal Edema Neurologic/Psychiatric: Alert, Oriented x3 Results Results/Procedures Labs Laboratory Tests 02/16/20 15:00 02/16/20 18:17 02/17/20 02:11 Patient resulted labs reviewed. Imaging: Reviewed Imaging Films, Reviewed Imaging Report Imaging [facility] [place], [place] NAME: MARK SUBRAMANIAN [facility] REC#: [id number] PT STATUS: REG ER : 1970 PHYSICIAN: PASHA FANG ADMIT DATE: 02/16/20/ER Signed Date of Exam:02/16/20 CHEST 1 VIEW, AP/PA ONLY INDICATION: Increasing shortness of air. TIME OF EXAM: 2:49 PM. COMPARISON: 02/11/2020. FINDINGS: The heart size is normal. There are worsening airspace infiltrates throughout both lungs, suggestive of worsening pneumonia. There is a rounded component in the right mid to lower lung field which is stable. There is no effusion or pneumothorax. IMPRESSION: Worsening bilateral pulmonary infiltrates, consistent with worsening pneumonia. Dictated by: Dictated on workstation # [id number] Dict: 02/16/20 1515 Trans: 02/16/20 1555 [id number] Interpreted by: ODILIA ORTIZ MD Electronically signed by: ODILIA ORTIZ MD 02/16/20 1555 Assessment/Plan Admission Diagnosis Acute Hypoxemic Respiratory Failure COVID19 Secondary PNA Severe Sepsis with lactic acidosis I placed on NRB at 15lpm and sats slowly climbed to 90-91% RT to bedside and placed on Vapotherm Pulm/TeleICU consulted, appreciate recs Started on Remdesivir by eiCU Continue Decadron Continue Zosyn Febrile this AM D-dimer 15, if stabilizes will attempt CTA chest, will cover with therapeutic lovenox for now HTN HLD Bp well controlled currently, trend NIDDMII Hold metformin as will likely get contrast SSI Admission Status: Inpatient Order (span 2 midnights) Reason for Inpatient Admission: resp failure Diagnosis/Problems Diagnosis/Problems (1) Acute respiratory failure Status: Acute Qualifiers: Respiratory failure complication: hypoxia Qualified Codes: J96.01 - Acute respiratory failure with hypoxia (2) HLD (hyperlipidemia) Status: Chronic Qualifiers: Hyperlipidemia type: unspecified Qualified Codes: E78.5 - Hyperlipidemia, unspecified (3) Essential (primary) hypertension Status: Chronic (4) Non-insulin dependent type 2 diabetes mellitus Status: Chronic (5) Obesity Qualifiers: Obesity type: unspecified obesity type Obesity classification: adult class 2 (BMI 35 - 39.9) Serious obesity comorbidity presence: unspecified whether serious comorbidity present Body mass index: BMI 36.0-36.9 Qualified Codes: E66.9 - Obesity, unspecified; Z68.36 - Body mass index (bmi) 36.0-36.9, adult (6) Lactic acidosis Status: Acute (7) Severe sepsis Status: Acute (8) Prophylactic measure Status: Acute (9) SARS-associated coronavirus infection Status: Acute (10) Pneumonia Status: Acute Qualifiers: Pneumonia type: due to unspecified organism Laterality: bilateral Lung location: unspecified part of lung Qualified Codes: J18.9 - Pneumonia, unspecified organism Clinical Quality Measures DVT/VTE Risk/Contraindication: Risk Factor Score Per Nursin RFS Level Per Nursing on Admit: 3=High RIKKI HANCOCK MD Feb 17, 2020 10:19
[2020-02-17] MEDS: REMDESIVIR INJ (NON-FORMULARY) 100 MG in NS (IVPB) 230 ML IV SCH (18:00)
[2020-02-17] MEDS: ENOXAPARIN 100 MG/1 ML (LOVENOX) SYR SC SCH (18:01)
[2020-02-17] MEDS: RT-ALBUTEROL INHALER HFA (VENTOLIN HFA) 8 GM IH PRN ×2 (19:08→21:44)
[2020-02-18] VITALS (16 sets, daily range): BP systolic 110–141; BP diastolic 65–96
[2020-02-18 03:05] LABS: CHLORIDE 106 MMOL/L (98-107); POTASSIUM 4.1 MMOL/L (3.6-5.0); SODIUM 136 MMOL/L (135-145)
[2020-02-18 03:06] LABS: CALCIUM 8.1 MG/DL (8.5-10.1)
[2020-02-18 03:07] LABS: GLUCOSE 182 MG/DL (70-105)
[2020-02-18 03:08] LABS: CARBON DIOXIDE 20 MMOL/L (21-32)
[2020-02-18 03:11] LABS: CREATININE SERUM 0.72 MG/DL (0.60-1.30); GFR ESTIMATED > 60; PHOSPHORUS 3.3 MG/DL (2.3-4.7)
[2020-02-18 03:12] LABS: BUN/CREATININE RATIO 19
[2020-02-18 03:13] LABS: MAGNESIUM 2.2 MG/DL (1.6-2.4)
[2020-02-18 04:19] LABS: BASOPHILS % (AUTO) 0 % (0-10); EOSINOPHILS % (AUTO) 0 % (0-10); HEMATOCRIT 40 % (40-54); HEMOGLOBIN 13.8 G/DL (13.3-17.7); LYMPHOCYTES # (AUTO) 1.4 X 10^3 (1.0-4.0); LYMPHOCYTES % (AUTO) 11 % (12-44); MEAN CORPUSCULAR HEMOGLOBIN 30 PG (25-34); MEAN CORPUSCULAR HGB CONC 34 G/DL (32-36); MEAN CORPUSCULAR VOLUME 87 FL (80-99); MEAN PLATELET VOLUME 9.7 FL (7.4-10.4); MONOCYTES # (AUTO) 0.6 X 10^3 (0.0-1.0); MONOCYTES % (AUTO) 5 % (0-12); NEUTROPHILS # (AUTO) 10.3 X 10^3 (1.8-7.8); NEUTROPHILS % (AUTO) 83 % (42-75); PLATELET COUNT 239 10^3/uL (130-400); RED CELL DISTRIBUTION WIDTH 12.7 % (10.0-14.5); WHITE BLOOD COUNT 12.3 10^3/uL (4.3-11.0)
[2020-02-18] MEDS: KCL 20 MEQ TAB (K-DUR) PO SCH (05:55)
[2020-02-18] MEDS: POTASSIUM CL 10MEQ/50ML IVPB 50 ML IV SCH (05:55)
[2020-02-18] MEDS: MAGNESIUM 1 GM/100 ML IVPB 100 ML IV SCH (05:55)
[2020-02-18] MEDS: ENOXAPARIN 100 MG/1 ML (LOVENOX) SYR SC SCH ×2 (06:34→20:28)
[2020-02-18] MEDS: inSUlin ASPART (NovoLOG) 1 UNIT/0.01 ML (CHARGE PER UNIT) SQ SCH ×4 (06:34→20:33)
[2020-02-18] MEDS: PIPERACILLIN/TAZO 4.5 GM/NS 100 ML IV SCH ×6 (06:34→23:00)
[2020-02-18] MEDS: RT-ALBUTEROL INHALER HFA (VENTOLIN HFA) 8 GM IH PRN (06:48)
[2020-02-18] MEDS: DEXAMETHASONE 4 MG/ML SDV (DECADRON) IV SCH (08:29)
[2020-02-18] MEDS: PANTOPRAZOLE 40 MG (PROTONIX) VIAL IV SCH (08:29)
[2020-02-18] MEDS: NS IV 1000 ML 1,000 ML IV SCH ×2 (10:00→23:00)
--- NOTE | 2020-02-18 13:23 | Progress Note - Hospitalist ---
Subjective HPI/CC On Admission Date Seen by Provider: Feb 18, 2020 Time Seen by Provider: 10:00 Pt is a 49yoCM with a PMH of HTN, HLD, NIDDMII who presented to the ER due to SOB. When I went to see him he had taken his oxygen off and was satting 80 percent and in respiratory distress so history is limited. Reportedly he was diagnosed with coronavirus on 02/04/2020 and was seen in the ER here on 02/10 due to SOB. He was diagnosed with secondary pneumonia at that time and treated with doxycycline. Despite this he continued to worsen and presented yesterday with worsening shortness of breath and was admitted to the ICU due to profound hypoxia. Subjective/Events-last exam He reports feeling better today. He denies any shortness of breath. He is tolerating off. He denies any fevers or chills. He has no other complaints or concerns. Focused Exam Lactate Level 02/16/20 23:45: Lactic Acid Level 2.57*H 02/17/20 02:11: Lactic Acid Level 2.01*H 02/17/20 04:22: Lactic Acid Level 1.74 Objective Exam Vital Signs Vital Signs Date Time Temp Pulse Resp B/P (MAP) Pulse Ox O2 Delivery O2 Flow Rate FiO2 02/18/20 12:47 55 02/18/20 12:29 96 Nasal Cannula 3.00 02/18/20 12:00 27 131/91 (104) 02/18/20 06:48 32 02/18/20 04:00 36.0 Capillary Refill : Less Than 3 Seconds General Appearance: No Apparent Distress, WD/WN, Obese Neck: Normal Inspection, Supple Respiratory: Lungs Clear, Normal Breath Sounds, No Respiratory Distress Cardiovascular: Regular Rate, Rhythm, No Edema, No Murmur Gastrointestinal: Normal Bowel Sounds, Non Tender, Soft Extremity: Normal Inspection, Non Tender, No Pedal Edema Neurologic/Psychiatric: Alert, Oriented x3, No Motor/Sensory Deficits, Normal Mood/Affect Skin: Normal Color, Warm/Dry Results/Procedures Lab Laboratory Tests 02/18/20 02:40 Patient resulted labs reviewed. Imaging: Reviewed Imaging Report Assessment/Plan Assessment and Plan Assess & Plan/Chief Complaint COVID-19 Acute respiratory failure with hypoxia Possible pneumonia Severe Sepsis with lactic acidosis Oxygen requirement decreasing Continue Remdesivir Continue Decadron Continue Zosyn Continue Lovenox HTN HLD BP well-controlled NIDDMII SSI Diagnosis/Problems Diagnosis/Problems (1) COVID-19 Status: Acute (2) Acute respiratory failure Status: Acute Qualifiers: Respiratory failure complication: hypoxia Qualified Codes: J96.01 - Acute respiratory failure with hypoxia (3) Pneumonia Status: Acute Qualifiers: Pneumonia type: due to unspecified organism Laterality: bilateral Lung location: unspecified part of lung Qualified Codes: J18.9 - Pneumonia, unspecified organism Clinical Quality Measures DVT/VTE Risk/Contraindication: Risk Factor Score Per Nursin RFS Level Per Nursing on Admit: 3=High ELAYNE LOWRY MD Feb 18, 2020 13:23
--- NOTE | 2020-02-18 15:50 | NUR ---
pt arrived to floor from icu, report received from Davina DE LA TORRE
[2020-02-18] MEDS: REMDESIVIR INJ (NON-FORMULARY) 100 MG in NS (IVPB) 230 ML IV SCH (18:41)
[2020-02-18] MEDS: RT-ALBUTEROL INHALER HFA (VENTOLIN HFA) 8 GM IH SCH (21:10)
[2020-02-19 04:00] VITALS: BP 132/90
[2020-02-19] MEDS: ENOXAPARIN 100 MG/1 ML (LOVENOX) SYR SC SCH (05:53)
[2020-02-19] MEDS: PIPERACILLIN/TAZO 4.5 GM/NS 100 ML IV SCH ×4 (05:54→16:07)
[2020-02-19] MEDS: inSUlin ASPART (NovoLOG) 1 UNIT/0.01 ML (CHARGE PER UNIT) SQ SCH ×4 (05:54→20:10)
[2020-02-19 06:09] LABS: CHLORIDE 106 MMOL/L (98-107); SODIUM 137 MMOL/L (135-145)
[2020-02-19 06:10] LABS: CALCIUM 7.9 MG/DL (8.5-10.1); GLUCOSE 156 MG/DL (70-105)
[2020-02-19 06:12] LABS: CARBON DIOXIDE 21 MMOL/L (21-32)
[2020-02-19 06:14] LABS: GFR ESTIMATED > 60; PHOSPHORUS 3.9 MG/DL (2.3-4.7)
[2020-02-19 06:15] LABS: BUN/CREATININE RATIO 19
[2020-02-19 06:16] LABS: MAGNESIUM 2.2 MG/DL (1.6-2.4)
[2020-02-19] MEDS: RT-ALBUTEROL INHALER HFA (VENTOLIN HFA) 8 GM IH SCH ×2 (07:10→19:00)
[2020-02-19 08:09] VITALS: BP 114/63
[2020-02-19] MEDS: PANTOPRAZOLE 40 MG (PROTONIX) VIAL IV SCH (08:12)
[2020-02-19] MEDS: DEXAMETHASONE 4 MG/ML SDV (DECADRON) IV SCH (08:14)
[2020-02-19] MEDS ORDERED: HOLD METFORMIN - RECEIVED CONTRAST 20 ML VIAL IV SCH (09:45)
[2020-02-19] MEDS ORDERED: NS 100 ML (IVPB) BAG IV ONE (09:45)
[2020-02-19] MEDS ORDERED: IOHEXOL 350 MG/ML 100 ML (OMNIPAQUE 350) VIAL IV ONE (09:45)
--- NOTE | 2020-02-19 09:57 | Diagnostic Imaging Report ---
PROCEDURE: CT angiography of the chest with contrast. TECHNIQUE: Multiple contiguous axial images were obtained through the chest after uneventful bolus administration of intravenous contrast. 3D reconstructed CTA MIP acquisitions were also performed. Auto Exposure Controls were utilized during the CT exam to meet ALARA standards for radiation dose reduction. INDICATION: Hypoxia. COVID 19 positive. Concern for pulmonary embolism. COMPARISON: Chest radiograph on 02/16/2020. FINDINGS: This helical CT pulmonary angiogram is diagnostic to the subsegmental level branches of the pulmonary artery and demonstrates a small burden of pulmonary emboli involving a subsegmental pulmonary artery of the right lower lobe. No evidence of right heart strain or pulmonary infarct. The heart and great vessels are unremarkable. There is no pericardial effusion. There is no axillary, mediastinal, or hilar adenopathy. Patchy consolidative opacities are seen throughout the lungs. No focal mass. No central endobronchial obstructing lesions. No pleural effusion or pneumothorax is seen. Osseous structures appear normal. Limited views of the upper abdomen are unremarkable. IMPRESSION: 1. Small burden of pulmonary emboli involving a subsegmental pulmonary artery of the right lower lobe. No right heart strain or pulmonary infarct. 2. Patchy consolidative opacities throughout the lungs, consistent with the patient history of COVID 19 infection. No pleural effusion or lymphadenopathy. Report given and faxed to nurse (Michelle) at 9:55 AM 02/19/2020/cb Dictated by: Dictated on workstation # [id number]
[2020-02-19 11:51] VITALS: BP 126/77
--- NOTE | 2020-02-19 12:13 | Progress Note - Hospitalist ---
Subjective HPI/CC On Admission Date Seen by Provider: Feb 19, 2020 Time Seen by Provider: 10:25 Pt is a 49yoCM with a PMH of HTN, HLD, NIDDMII who presented to the ER due to SOB. When I went to see him he had taken his oxygen off and was satting 80 percent and in respiratory distress so history is limited. Reportedly he was diagnosed with coronavirus on 02/04/2020 and was seen in the ER here on 02/10 due to SOB. He was diagnosed with secondary pneumonia at that time and treated with doxycycline. Despite this he continued to worsen and presented yesterday with worsening shortness of breath and was admitted to the ICU due to profound hypoxia. Subjective/Events-last exam He has no complaints or concerns. He denies any fevers or chills. He denies any shortness of breath. He is still having a cough. He denies any chest pain. He denies any abdominal pain, nausea, or vomiting. Focused Exam Lactate Level 02/16/20 23:45: Lactic Acid Level 2.57*H 02/17/20 02:11: Lactic Acid Level 2.01*H 02/17/20 04:22: Lactic Acid Level 1.74 Objective Exam Vital Signs Vital Signs Date Time Temp Pulse Resp B/P (MAP) Pulse Ox O2 Delivery O2 Flow Rate FiO2 02/19/20 11:51 36.5 49 17 126/77 (93) 97 Nasal Cannula 3.00 02/18/20 06:48 32 Capillary Refill : Less Than 3 Seconds General Appearance: No Apparent Distress, Obese Respiratory: Lungs Clear, Normal Breath Sounds, No Respiratory Distress Cardiovascular: Regular Rate, Rhythm, No Edema, No Murmur Gastrointestinal: Normal Bowel Sounds, Non Tender, Soft Extremity: Normal Inspection, Non Tender, No Pedal Edema Neurologic/Psychiatric: Alert, No Motor/Sensory Deficits, Normal Mood/Affect; No Disoriented Skin: Normal Color, Warm/Dry Results/Procedures Lab Laboratory Tests 02/19/20 05:45 Patient resulted labs reviewed. Imaging: Reviewed Imaging Report Assessment/Plan Assessment and Plan Assess & Plan/Chief Complaint COVID-19 Acute respiratory failure with hypoxia Possible pneumonia Pulmonary embolism Oxygen requirement stable Continue Remdesivir Continue Decadron Continue Zosyn CT revealed subsegmental pulmonary embolism Transition to Eliquis HTN HLD BP well-controlled NIDDMII SSI DVT prophylaxis: Already receiving therapeutic anticoagulation Lactic acidosis, resolved Severe sepsis Diagnosis/Problems Diagnosis/Problems (1) COVID-19 Status: Acute (2) Acute respiratory failure Status: Acute Qualifiers: Respiratory failure complication: hypoxia Qualified Codes: J96.01 - Acute respiratory failure with hypoxia (3) Pneumonia Status: Acute Qualifiers: Pneumonia type: due to unspecified organism Laterality: bilateral Lung location: unspecified part of lung Qualified Codes: J18.9 - Pneumonia, unspecified organism (4) Pulmonary embolism Status: Acute Qualifiers: Pulmonary embolism type: single subsegmental (without acute cor pulmonale) Qualified Codes: I26.93 - Single subsegmental pulmonary embolism without acute cor pulmonale Clinical Quality Measures DVT/VTE Risk/Contraindication: Risk Factor Score Per Nursin RFS Level Per Nursing on Admit: 3=High ELAYNE LOWRY MD Feb 19, 2020 12:13
[2020-02-19] MEDS: NS IV 1000 ML 1,000 ML IV SCH ×2 (12:40→20:56)
[2020-02-19 16:07] VITALS: BP 124/67
[2020-02-19] MEDS: REMDESIVIR INJ (NON-FORMULARY) 100 MG in NS (IVPB) 230 ML IV SCH (18:05)
[2020-02-19] MEDS: APIXABAN 5 MG (ELIQUIS) TABLET PO SCH (20:03)
[2020-02-19 20:07] VITALS: BP 144/86
[2020-02-20] VITALS: BP 122/78
[2020-02-20] MEDS: PIPERACILLIN/TAZO 4.5 GM/NS 100 ML IV SCH ×6 (00:30→15:26)
[2020-02-20 04:45] VITALS: BP 110/70
[2020-02-20] MEDS: inSUlin ASPART (NovoLOG) 1 UNIT/0.01 ML (CHARGE PER UNIT) SQ SCH ×2 (05:28→11:28)
[2020-02-20 06:03] LABS: CHLORIDE 105 MMOL/L (98-107); POTASSIUM 4.1 MMOL/L (3.6-5.0); SODIUM 137 MMOL/L (135-145)
[2020-02-20 06:05] LABS: CALCIUM 7.9 MG/DL (8.5-10.1); GLUCOSE 149 MG/DL (70-105)
[2020-02-20 06:07] LABS: CARBON DIOXIDE 21 MMOL/L (21-32)
[2020-02-20 06:09] LABS: CREATININE SERUM 0.94 MG/DL (0.60-1.30); GFR ESTIMATED > 60; PHOSPHORUS 3.9 MG/DL (2.3-4.7)
[2020-02-20 06:10] LABS: BUN/CREATININE RATIO 16
[2020-02-20 06:11] LABS: MAGNESIUM 2.3 MG/DL (1.6-2.4)
[2020-02-20] MEDS: PANTOPRAZOLE 40 MG (PROTONIX) VIAL IV SCH (07:44)
[2020-02-20] MEDS: DEXAMETHASONE 4 MG/ML SDV (DECADRON) IV SCH (07:44)
[2020-02-20] MEDS: APIXABAN 5 MG (ELIQUIS) TABLET PO SCH ×2 (07:45→19:42)
[2020-02-20 08:00] VITALS: BP 96/61
[2020-02-20] MEDS: RT-ALBUTEROL INHALER HFA (VENTOLIN HFA) 8 GM IH SCH ×3 (08:12→19:30)
--- NOTE | 2020-02-20 14:54 | Progress Note - Hospitalist ---
Subjective HPI/CC On Admission Date Seen by Provider: Feb 20, 2020 Time Seen by Provider: 10:35 Pt is a 49yoCM with a PMH of HTN, HLD, NIDDMII who presented to the ER due to SOB. When I went to see him he had taken his oxygen off and was satting 80 percent and in respiratory distress so history is limited. Reportedly he was diagnosed with coronavirus on 02/04/2020 and was seen in the ER here on 02/10 due to SOB. He was diagnosed with secondary pneumonia at that time and treated with doxycycline. Despite this he continued to worsen and presented yesterday with worsening shortness of breath and was admitted to the ICU due to profound hypoxia. Subjective/Events-last exam he denies any shortness of breath. He continues to have a bit of a cough. He denies any fevers or chills. He is having constipation. He denies any abdominal pain. He denies any nausea or vomiting. He has been eating and drinking well. He has been able to move around and go to the bathroom. Objective Exam Vital Signs Vital Signs Date Time Temp Pulse Resp B/P (MAP) Pulse Ox O2 Delivery O2 Flow Rate FiO2 02/20/20 13:07 37.0 57 18 93 Nasal Cannula 0.00 2.00 02/18/20 06:48 32 Capillary Refill : Less Than 3 Seconds General Appearance: No Apparent Distress, Obese Respiratory: Lungs Clear, Normal Breath Sounds, No Respiratory Distress Cardiovascular: Regular Rate, Rhythm, No Edema, No Murmur Gastrointestinal: Normal Bowel Sounds, Non Tender, Soft Extremity: Normal Inspection, Non Tender, No Pedal Edema Neurologic/Psychiatric: Alert, No Motor/Sensory Deficits, Normal Mood/Affect; No Disoriented Skin: Normal Color, Warm/Dry Results/Procedures Lab Laboratory Tests 02/20/20 05:36 Patient resulted labs reviewed. Imaging: Reviewed Imaging Report Assessment/Plan Assessment and Plan Assess & Plan/Chief Complaint COVID-19 Acute respiratory failure with hypoxia Possible pneumonia Pulmonary embolism Oxygen requirement improving Home O2 study tomorrow morning Continue Remdesivir, last dose this evening Continue Decadron, last dose tomorrow morning Continue Zosyn, last dose tomorrow CT revealed subsegmental pulmonary embolism Continue Eliquis constipation Add bowel regimen HTN HLD BP well-controlled NIDDMII SSI DVT prophylaxis: Already receiving therapeutic anticoagulation Lactic acidosis, resolved Severe sepsis Diagnosis/Problems Diagnosis/Problems (1) COVID-19 Status: Acute (2) Acute respiratory failure Status: Acute Qualifiers: Respiratory failure complication: hypoxia Qualified Codes: J96.01 - Acute respiratory failure with hypoxia (3) Pneumonia Status: Acute Qualifiers: Pneumonia type: due to unspecified organism Laterality: bilateral Lung location: unspecified part of lung Qualified Codes: J18.9 - Pneumonia, unspecified organism (4) Pulmonary embolism Status: Acute Qualifiers: Pulmonary embolism type: single subsegmental (without acute cor pulmonale) Qualified Codes: I26.93 - Single subsegmental pulmonary embolism without acute cor pulmonale Clinical Quality Measures DVT/VTE Risk/Contraindication: Risk Factor Score Per Nursin RFS Level Per Nursing on Admit: 3=High ELAYNE LOWRY MD Feb 20, 2020 14:54
[2020-02-20] MEDS ORDERED: polyethylene glycoL POWDER 17 GM (MIRALAX) PACK PO PRN (15:00)
[2020-02-20] MEDS ORDERED: ONDANSETRON 4 MG/2 ML (SDV) Z0FRAN IV PRN (15:00)
[2020-02-20] MEDS ORDERED: ACETAMINOPHEN 325 MG TABLET PO PRN (15:00)
[2020-02-20] MEDS ORDERED: BISACODYL 10 MG SUPP (DULCOLAX) PR PRN (15:00)
[2020-02-20] MEDS ORDERED: ONDANSETRON 4 MG (ZOFRAN) ORAL DISSOLVE TAB PO PRN (15:00)
[2020-02-20] MEDS ORDERED: diphenhydrAMINE 25 MG TAB (BENADRYL) PO PRN (15:00)
[2020-02-20] MEDS ORDERED: ANTACID SUSP 30 ML UDC (MYLANTA) PO PRN (15:00)
[2020-02-20] MEDS ORDERED: MELATONIN 3 MG TABLET PO PRN (15:00)
[2020-02-20 15:36] VITALS: BP 103/66
[2020-02-20] MEDS: inSUlin ASPART (NovoLOG) 1 UNIT/0.01 ML (CHARGE PER UNIT) SC SCH ×2 (16:27→19:48)
[2020-02-20] MEDS: REMDESIVIR INJ (NON-FORMULARY) 100 MG in NS (IVPB) 230 ML IV SCH (17:43)
[2020-02-20 19:39] VITALS: BP 117/76
[2020-02-20] MEDS: SENNOSIDES 8.6 MG (SENOKOT) TAB PO SCH (19:42)
[2020-02-20] MEDS: DOCUSATE SODIUM 100 MG (COLACE) CAP PO SCH (20:09)
[2020-02-21] MEDS: PIPERACILLIN/TAZO 4.5 GM/NS 100 ML IV SCH ×4 (00:01→07:53)
[2020-02-21 00:02] VITALS: BP 102/59
[2020-02-21 04:25] VITALS: BP 120/72
[2020-02-21] MEDS: inSUlin ASPART (NovoLOG) 1 UNIT/0.01 ML (CHARGE PER UNIT) SC SCH ×2 (06:00→12:53)
[2020-02-21 06:05] LABS: CHLORIDE 106 MMOL/L (98-107); SODIUM 136 MMOL/L (135-145)
[2020-02-21 06:06] LABS: CALCIUM 7.9 MG/DL (8.5-10.1); GLUCOSE 152 MG/DL (70-105)
[2020-02-21 06:08] LABS: CARBON DIOXIDE 21 MMOL/L (21-32)
[2020-02-21 06:10] LABS: CREATININE SERUM 0.85 MG/DL (0.60-1.30); GFR ESTIMATED > 60; PHOSPHORUS 3.6 MG/DL (2.3-4.7)
[2020-02-21 06:11] LABS: BUN/CREATININE RATIO 19
[2020-02-21 06:13] LABS: MAGNESIUM 2.2 MG/DL (1.6-2.4)
[2020-02-21] MEDS: APIXABAN 5 MG (ELIQUIS) TABLET PO SCH (08:01)
[2020-02-21] MEDS: DOCUSATE SODIUM 100 MG (COLACE) CAP PO SCH (08:02)
[2020-02-21] MEDS: SENNOSIDES 8.6 MG (SENOKOT) TAB PO SCH (08:02)
[2020-02-21 08:07] VITALS: BP 111/73
[2020-02-21] MEDS: DEXAMETHASONE 4 MG/ML SDV (DECADRON) IV SCH (08:10)
[2020-02-21] MEDS ORDERED: PANTOPRAZOLE 40 MG (PROTONIX) TAB PO SCH (09:00)
--- NOTE | 2020-02-21 09:38 | NUR ---
SPO2 89% ON ROOM AIR @ REST. SPO2 DROPPED TO 86% ON ROOM AIR WITH EXERTION. PT WALKED IN ROOM ON O2 @ 3 LPM. SPO2 STAYED ABOVE 90%. Addendum: 02/21/20 at 1009 by ANTONETTE DAY RT Amended: Links added.
[2020-02-21] MEDS: RT-ALBUTEROL INHALER HFA (VENTOLIN HFA) 8 GM IH SCH (10:00)
[2020-02-21] MEDS ORDERED: CEFD300C3 PO (11:47)
--- NOTE | 2020-02-21 11:48 | NUR ---
SPOKE WITH THE PT (I CALLED HIS ROOM PHONE) WENT THRU THE EXT MED HISTORY AND CALLED [facility] TO COMPLETE THE MED REC PT WAS IN THE ED A FEW DAYS BEFORE BEING ADMITTED- AT THAT TIME HE RECEIVED DOXYCYCLINE, ZOFRAN AND A MEDROL DOSE PACK- HE SAYS HE WAS TAKING THOSE UP UNTIL HE WAS ADMITTED PRIOR TO THAT HE GOT CEFDINIR 300MG FROM [facility] ON 02-07-2020 #20/10DS AND PT THOUGHT HE WAS STILL TAKING THAT ANTIBIOTIC ALSO. PT DENIED TAKING ANY OTC MEDS
--- NOTE | 2020-02-21 12:15 | NUR ---
CM DISCHARGE PLAN: Patient is discharging to home today with new oxygen needed. He would like to use [facility] [place] for his new oxygen needs. Referral called et will fax once d/c orders completed. No additional needs noted.
[2020-02-21 12:30] VITALS: BP 100/63
[2020-02-21] MEDS ORDERED: APIX5TAB PO (13:27)
--- NOTE | 2020-02-21 16:09 | Discharge Summary ---
Discharge Summary Hospital Course Was the Problem List Reviewed?: Yes Problems/Dx: (1) COVID-19 Status: Acute (2) Acute respiratory failure Status: Acute Qualifiers: Qualified Codes: J96.01 - Acute respiratory failure with hypoxia (3) Pneumonia Status: Acute Qualifiers: Qualified Codes: J18.9 - Pneumonia, unspecified organism (4) Pulmonary embolism Status: Acute Qualifiers: Qualified Codes: I26.93 - Single subsegmental pulmonary embolism without acute cor pulmonale Hospital Course Date of Admission: Feb 16, 2020 at 16:15 Admission Diagnosis : COVID-19 Family Physician/Provider: No,Local Physician Date of Discharge: 02/21/20 Discharge Diagnosis: COVID-19 Hospital Course: Martin Lundy is a 49-year-old male who was admitted with acute hypoxic respiratory failure due to COVID-19. He was started on Remdesivir and Decadron due to COVID. He was requiring supplemental oxygen and this improved at the time of discharge but he was still requiring a few liters with exertion. His course was complicated by a superimposed bacterial pneumonia for which he received a course of IV antibiotics. On admission, his d-dimer was significantly elevated and he was started on therapeutic Lovenox. He underwent a CT scan which revealed subsegmental pulmonary emboli and he was transitioned to Eliquis. He was discharged in stable condition. He should follow-up with his primary care physician in a couple weeks. Labs and Pending Lab Test: Laboratory Tests 02/20/20 19:45: Glucometer 330H 02/21/20 05:26: Glucometer 160H 02/21/20 05:30: Sodium Level 136, Potassium Level 4.0, Chloride Level 106, Carbon Dioxide Level 21, Anion Gap 9, Blood Urea Nitrogen 16, Creatinine 0.85, Estimat Glomerular Filtration Rate > 60, BUN/Creatinine Ratio 19, Glucose Level 152H, Calcium Level 7.9L, Phosphorus Level 3.6, Magnesium Level 2.2 02/21/20 12:49: Glucometer 300H Microbiology 02/16/20 MRSA Screen - Final, Complete MRSA not isolated 02/16/20 Blood Culture - Preliminary, Resulted No growth Home Meds Active Eliquis (Apixaban) 5 Mg Tablet 5 Mg PO BID 30 Days Assessment/Pt Instructions Take medications as prescribed. You are being started on a blood thinner, Eliquis, for pulmonary embolism. Follow-up with your primary care physician. Discharge Planning: <30 minutes discharge planning Discharge Instructions Discharge Diet: No Restrictions Activity as Tolerated: Yes Pneumonia Vaccine Order Indica: Yes Discharge Physical Examination Vital Signs Vital Signs Date Time Temp Pulse Resp B/P (MAP) Pulse Ox O2 Delivery O2 Flow Rate FiO2 02/21/20 12:30 36.4 52 18 100/63 (75) 97 2.00 02/21/20 10:00 Nasal Cannula 02/18/20 06:48 32 General Appearance: No Apparent Distress, WD/WN, Obese HEENT: PERRL/EOMI, Pharynx Normal Respiratory: Lungs Clear, Normal Breath Sounds, No Respiratory Distress Cardiovascular: Regular Rate, Rhythm, No Edema, No Murmur Gastrointestinal: Normal Bowel Sounds, Non Tender Extremity: Normal Inspection, Non Tender, No Pedal Edema Skin: Normal Color, Warm/Dry Neurologic/Psychiatric: Alert, Oriented x3, No Motor/Sensory Deficits, Normal Mood/Affect Allergies: Coded Allergies: No Known Drug Allergies (Unverified , 04/21/19) Copy Copies To [place]: [facility] [place] Date of Admission Feb 16, 2020 at 16:15 Date of Discharge Discharge Date: Feb 21, 2020 Discharge Time: 16:07 Admission Diagnosis COVID-19 Discharge Diagnosis COVID-19 (1) COVID-19 Status: Acute (2) Acute respiratory failure Status: Acute Qualifiers: Qualified Codes: J96.01 - Acute respiratory failure with hypoxia (3) Pneumonia Status: Acute Qualifiers: Qualified Codes: J18.9 - Pneumonia, unspecified organism (4) Pulmonary embolism Status: Acute Qualifiers: Qualified Codes: I26.93 - Single subsegmental pulmonary embolism without acute cor pulmonale Clinical Quality Measures DVT/VTE Risk/Contraindication: Risk Factor Score Per Nursin RFS Level Per Nursing on Admit: 3=High ELAYNE LOWRY MD Feb 21, 2020 16:09
[2020-02-26] MEDS ORDERED: APIXABAN 5 MG (ELIQUIS) TABLET PO SCH (21:00)
== END 2020-02-21 14:00 | disposition home or self-care (01) | DRG 871 ==
LOC: EDUNIT# 14:40 → ER 14:41 → ICU 16:15 → 4TH 02-18 15:47
PROVIDERS: ADMIT Family Medicine; ATTEND Internal Medicine
DX: A41.89 Other specified sepsis (principal); U07.1 COVID-19; J12.89 Other viral pneumonia; J96.01 Acute respiratory failure with hypoxia; I26.99 Other pulmonary embolism without acute cor pulmonale; E87.2 Acidosis; R65.20 Severe sepsis without septic shock; I10 Essential (primary) hypertension; E78.00 Pure hypercholesterolemia, unspecified; E11.9 Type 2 diabetes mellitus without complications; F41.9 Anxiety disorder, unspecified; Z79.84 Long term (current) use of oral hypoglycemic drugs
CPT/HCPCS: 36415; 71045; 71275; 80048; 80053; 82728; 82805; 82962; 83605; 83615; 83735; 84100; 84145; 84484; 85007; 85025; 85027; 85379; 85384; 85610; 85730; 86141; 87040; 87081; 93005; 93041; 94640; 94760; 94761; 96361; 96374

== ENCOUNTER → 2020-03-27 | Outpatient (CLI) | payer OTHER ==
[~2020-03-27] MED LIST changes: +APIX5TAB PO; +CEFD300C3 PO; +HOLD METFORMIN - RECEIVED CONTRAST 20 ML VIAL IV SCH; +IOHEXOL 350 MG/ML 100 ML (OMNIPAQUE 350) VIAL IV ONE; +NS 100 ML (IVPB) BAG IV ONE
--- NOTE | 2020-03-27 10:13 | Diagnostic Imaging Report ---
EXAMINATION: CT Chest with and without intravenous contrast. TECHNIQUE: Multiple contiguous axial images were obtained through the chest before and after the uneventful administration of intravenous contrast. All CT scans use one or more of the following dose optimizing techniques: automated exposure control, MA and/or KvP adjustment based on a patient size and exam type, or iterative reconstruction. HISTORY: Covid 19 infection COMPARISON: 02/19/2020 FINDINGS: The previously seen severe areas of groundglass throughout both lungs have mostly resolved. There is persistent mild groundglass and reticulations in the previously seen abnormal areas. No bronchiectasis is present. No pleural effusion. No pneumothorax. No suspicious nodules. There is no axillary or supraclavicular lymphadenopathy. There is no mediastinal lymphadenopathy. Heart size is normal. There are no coronary artery calcifications. No pericardial effusion. Aorta is normal in caliber. Limited views of the upper abdomen show hepatic steatosis. There are no suspicious osseus lesions. IMPRESSION: 1. Significant improvement in previously seen severe groundglass throughout both lungs. There is a mild amount of remaining groundglass and reticulations in the previously seen abnormal areas which may represent continued resolving inflammation or developing scarring in the lungs. 2. Hepatic steatosis. Dictated by: Dictated on workstation # [id number]
== END ==
LOC: RAD 08:39
PROVIDERS: ATTEND Nurse Practitioner Family
DX: U07.1 COVID-19 (principal); J18.9 Pneumonia, unspecified organism; K76.0 Fatty (change of) liver, not elsewhere classified; R91.8 Other nonspecific abnormal finding of lung field
CPT/HCPCS: 71270

== ENCOUNTER 2022-12-30 09:59 | Emergency (ER) | payer SELFPAY ==
[~2022-12-30] VITALS: Ht 165 cm; Wt 95.0 kg
[~2022-12-30 09:59] MED LIST changes: -HOLD METFORMIN - RECEIVED CONTRAST 20 ML VIAL IV SCH; -IOHEXOL 350 MG/ML 100 ML (OMNIPAQUE 350) VIAL IV ONE; -NS 100 ML (IVPB) BAG IV ONE
[2022-12-30] MEDS ORDERED: CYCLOBENZAPRINE 10 MG (FLEXERIL) TAB PO STA (10:52)
[2022-12-30] MEDS ORDERED: ACETAMINOPHEN 500 MG TAB (TYLENOL) PO ONE (11:00)
[2022-12-30] MEDS ORDERED: GABAPENTIN 300 MG (NEURONTIN) CAP PO ONE (11:00)
[2022-12-30] MEDS ORDERED: NAPROXEN 250 MG (NAPROSYN) TABLET PO ONE (11:00)
--- NOTE | 2022-12-30 11:00 | ED Back Pain ---
General Chief Complaint: Back Problems Stated Complaint: LOWER BACK PAIN | NUMBNESS IN LOWER EXTREMITIES Nursing Triage Note: Patient ambulatory to ED room 5. 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 Patient reports pain is worse when standing straight, bending, or twisting. Patient also reports intermittent numbness/tingling in bilat lower extremities. Patient has been seen by PCP and has been to walk-in clinic and had xray of lower back and was given anti-anflammatories and steroids. Pt reports initial relief w/ steroid use but pain has since returned. Source of Information: Patient, Family, [employer] Exam Limitations: No Limitations History of Present Illness Date Seen by Provider: December 30, 2022 Time Seen by Provider: 10:01 Initial Comments 52-year-old male with past medical history of diabetes and hypertension coming in due to low back pain. Started over 2 weeks ago when he was bending over to pick something up. Pain is worse with movement, better with rest. He finished some steroids and an anti-inflammatory which helped somewhat. Had an x-ray of his low back which was reportedly normal. Initially was complaining of numbness, but on further clarification, denies any numbness or focal weakness. Denies any bowel or bladder issues. Also denies any significant trauma, fever, IV drug use, or any other concerns. Allergies and Home Medications Allergies Coded Allergies: No Known Drug Allergies (Unverified , 04/21/19) Patient Home Medication List Home Medication List Reviewed: Yes Apixaban (Eliquis) 5 Mg Tablet, 5 MG PO BID Prescribed by: ELAYNE LOWRY on 02/21/20 1327 Review of Systems Constitutional: No fever EENTM: no symptoms reported Respiratory: no symptoms reported Cardiovascular: no symptoms reported Gastrointestinal: no symptoms reported Genitourinary: no symptoms reported Musculoskeletal: see HPI Psychiatric/Neurological: See HPI Past Itveenu-Emckdq-Ohyrci Hx Patient Social History Tobacco Use?: No Substance use?: No Alcohol Use?: No Seasonal Allergies Seasonal Allergies: Yes Past Medical History Surgery/Hospitalization HX: HTN, type 2 diabetes, high cholesterol Surgeries: Yes (KNEE SURGERY) Respiratory: No Cardiac: Yes High Cholesterol, Hypertension Neurological: No Sexually Transmitted Disease: No HIV/AIDS: No Genitourinary: No Gastrointestinal: No Musculoskeletal: No Endocrine: Yes Diabetes, Non-Insulin dep HEENT: Yes (READING GLASSES) Loss of Vision: Denies Hearing Impairment: Denies Cancer: No Psychosocial: Yes (MILD) Anxiety Integumentary: No Blood Disorders: No Adverse Reaction/Blood Tranf: No (N/A) Physical Exam Vital Signs Vital Signs - First Documented 12/30/22 10:32 Temp 36.2 Pulse 89 Resp 18 B/P (MAP) 143/94 (110) Pulse Ox 98 O2 Delivery Room Air Capillary Refill : Less Than 3 Seconds Height, Weight, BMI Height: 5'9.00" Weight: 222lbs. 9.0oz. 100.118966ak; 34.00 BMI Method: General Appearance: No Apparent Distress, WD/WN HEENT: PERRL/EOMI, Normal ENT Inspection, Pharynx Normal Neck: Full Range of Motion, Normal Inspection, Non Tender, Supple Cardiovascular: Regular Rate, Rhythm, No Edema, Normal Peripheral Pulses Respiratory: Chest Non Tender, Lungs Clear, Normal Breath Sounds, No Accessory Muscle Use, No Respiratory Distress Gastrointestinal: Normal Bowel Sounds, Non Tender, Soft Back: No CVA Tenderness, Other (L1 tenderness on exam, mostly paraspinal tenderness on the right, positive straight leg test on the right) Extremity: Normal Capillary Refill, Normal Inspection, Normal Range of Motion, Non Tender, No Calf Tenderness, No Pedal Edema Neurologic/Psychiatric: Alert, No Motor/Sensory Deficits, Normal Mood/Affect, Other (5 out of 5 strength in his lower extremity with flexion and extension, normal patellar reflexes) Skin: Normal Color, Warm/Dry Progress/Results/Core Measures Results/Orders My Orders Orders - ELLIOTT STEIN MD Ct Lumbar Spine Wo (12/30/22 10:52) Acetaminophen Tablet (Tylenol Tablet) (12/30/22 11:00) Gabapentin Capsule/Tablet (Neurontin Cap (12/30/22 11:00) Cyclobenzaprine Tablet (Flexeril Tablet) (12/30/22 10:52) Naproxen Tablet (Naprosyn Tablet) (12/30/22 11:00) Medications Given in ED Current Medications Medications Dose Ordered Sig/Lauren Route Start Time Stop Time Status Last Admin Dose Admin Acetaminophen 1,000 mg ONCE ONCE PO 12/30/22 11:00 12/30/22 11:01 DC 12/30/22 11:41 1,000 MG Gabapentin 300 mg ONCE ONCE PO 12/30/22 11:00 12/30/22 11:01 DC 12/30/22 11:41 300 MG Naproxen 250 mg ONCE ONCE PO 12/30/22 11:00 12/30/22 11:01 DC 12/30/22 11:41 250 MG Vital Signs/I&O 12/30/22 10:32 Temp 36.2 Pulse 89 Resp 18 B/P (MAP) 143/94 (110) Pulse Ox 98 O2 Delivery Room Air Blood Pressure Mean: 110 Progress Progress Note : Progress Note 52-year-old male with above history coming in due to low back pain. ABCs were intact and vitals are stable on presentation. Physical exam with midline lower back pain, no fever, no weakness, numbness, bowel or bladder issues, no significant trauma. Given its been just over 2 weeks for the pain, CT imaging ordered and interpreted by me showing no obvious fracture or dislocation. No acute findings per the radiology read as well. He was given oral medication for pain control. He is ambulating, not showing any signs of cauda equina, and no red flags including no neuro findings on my exam. I believe he stable for discharge with outpatient follow-up. He will get prescriptions for symptom ma nagement. Diagnostic Imaging Diagonstic Imaging: CT (lumbar spine) Comments [facility] [place] NAME: [facility] REC#: [id number] PT STATUS: REG ER : 1970 PHYSICIAN: ELLIOTT STEIN MD ADMIT DATE: 12/30/22/ER Draft Date of Exam:12/30/22 CT LUMBAR SPINE WO PROCEDURE: CT lumbar spine without contrast. TECHNIQUE: Multiple contiguous axial images were obtained through the lumbar spine without the use of intravenous contrast. Sagittal and coronal reformations were then performed. Auto Exposure Controls were utilized during the CT exam to meet ALARA standards for radiation dose reduction. INDICATION: Trauma. Low back pain. Numbness in both legs. Fall two weeks ago. COMPARISON: None. FINDINGS: Normal alignment. Vertebral body heights are preserved. No fractures. Visualized pelvis is intact. No CT evidence of high-grade spinal canal stenosis. Qpdh-ko-hywcmtsm spondylotic changes are greatest at L5-S1. Moderate bilateral neural foraminal narrowing at L5-S1. No acute findings in the visualized paravertebral soft tissues. IMPRESSION: 1. No acute CT findings in the lumbar spine. 2. Xwdt-lg-vzgyktzj spondylotic changes are greatest at L5-S1. Dictated on workstation # [id number] Dict: 12/30/22 1124 Trans: 12/30/22 1132 [id number] Interpreted by: ROOPA WAHL MD Electronically signed by: Departure Impression Primary Impression: Low back pain Qualified Codes: M54.41 - Lumbago with sciatica, right side Disposition: HOME, SELF-CARE Condition: Stable Departure-Patient Inst. Decision time for Depature: 12:00 Referrals: ELIZABETH FALLON DO (PCP/Family) Primary Care Physician Patient Instructions: Low Back Pain ED Add. Discharge Instructions: We are not seeing anything broken or dislocated in your back on the CT imaging. We recommend taking 1000 mg of Tylenol every 6 hours, will send prescriptions for couple other medications as well. The cyclobenzaprine is a muscle relaxer, do not operate heavy machinery or drive when you take this. Gabapentin can help with pain as well. Please follow-up with your regular doctor and get a referral to an orthopedic back specialist if pain is not improving in the next couple of weeks. Scripts Gabapentin (Gabapentin) 100 Mg Capsule 300 MG PO Q8H for Neuropathic pain for 14 Days, #126 CAP Prov: ELLIOTT STEIN MD 12/30/22 Lidocaine (Lidocaine 5% Patch) 5 % Adh..patch 1 EACH TP Q12H PRN for Neuropathic pain MDD 2 for 14 Days, #28 PATCH 2 patches max for 12 hours, then 12 hours patch-free period. Prov: ELLIOTT STEIN MD 12/30/22 Cyclobenzaprine HCl (Cyclobenzaprine HCl) 10 Mg Tablet 10 MG PO Q8H PRN for SPASMS for 5 Days, #15 TAB 0 Refills Prov: ELLIOTT STEIN MD 12/30/22 Work/School Note: Family Work Note, Patient Received Medical Care In the Emergency Department On: December 30, 2022 Patient Will Be Able to Return to Work/School On: December 31, 2022 Work Release Form Date Seen in the Emergency Department: December 30, 2022 Return to Work: January 01, 2023 Restrictions: No Restrictions ELLIOTT STEIN MD December 30, 2022 11:00
--- NOTE | 2022-12-30 11:32 | Diagnostic Imaging Report ---
PROCEDURE: CT lumbar spine without contrast. TECHNIQUE: Multiple contiguous axial images were obtained through the lumbar spine without the use of intravenous contrast. Sagittal and coronal reformations were then performed. Auto Exposure Controls were utilized during the CT exam to meet ALARA standards for radiation dose reduction. INDICATION: Trauma. Low back pain. Numbness in both legs. Fall two weeks ago. COMPARISON: None. FINDINGS: Normal alignment. Vertebral body heights are preserved. No fractures. Visualized pelvis is intact. No CT evidence of high-grade spinal canal stenosis. Kpyy-ya-trbbjsyd spondylotic changes are greatest at L5-S1. Moderate bilateral neural foraminal narrowing at L5-S1. No acute findings in the visualized paravertebral soft tissues. IMPRESSION: 1. No acute CT findings in the lumbar spine. 2. Mrih-cb-ncygoyxs spondylotic changes are greatest at L5-S1. Dictated by: Dictated on workstation # [id number]
[2022-12-30] MEDS ORDERED: GABA-486 PO (11:48)
[2022-12-30] MEDS ORDERED: CYCL10TA25 PO (11:48)
[2022-12-30] MEDS ORDERED: LIDO700A45 TP (11:48)
[2022-12-30 12:35] VITALS: BP 147/100
== END 2022-12-30 12:36 | disposition home or self-care (01) ==
LOC: EDUNIT# 09:59 → ER 10:02
DX: M54.50 Low back pain, unspecified (principal); X50.1XXA Overexertion from prolonged static or awkward postures, initial encounter
CPT/HCPCS: 72131